=== PATIENT | female | born 1965 | race African-American/Black ===

== ENCOUNTER 2016-11-18 17:19 | Emergency (ER) | payer MEDICAID ==
[~2016-11-18] VITALS: Ht 162.6 cm; Wt 117.5 kg
[~2016-11-18 17:19] MED LIST: AMLODIPINE BESY10 MG ORAL; COLACE100 MG ORAL; FLEET ENEMA133 ML RECTAL; HYDROCHLOROTHIA25 MG ORAL; IBUPROFEN600 MG ORAL; MAGNESIUM CITR296 M1 PO; NKM; NORCO 5-325 TA1 EAC1 ORAL; PREDNISONE20 MG ORAL; TESSALON PERLE100 MG ORAL; ZOFRAN ODT4 MG ORAL
[2016-11-18] MEDS ORDERED: Metoclopramide 10mg/2ml Inj IVP ONE (17:45)
[2016-11-18 18:00] VITALS: BP 135/88
[2016-11-18 18:44] LABS: BASOPHILS % (AUTO) 1.8 % (0.0-2.0); EOSINOPHILS % (AUTO) 2.6 % (0.0-3.0); MEAN CORPUSCULAR HEMOGLOBIN 28.2 PG (27.0-31.0); MEAN CORPUSCULAR HGB CONC 32.4 G/DL (32.0-36.0); MEAN CORPUSCULAR VOLUME 87 FL (80-99); MEAN PLATELET VOLUME 8.2 FL (6.5-10.1); MONOCYTES % (AUTO) 10.3 % (1.0-10.0); NEUTROPHILS % (AUTO) 44.3 % (45.0-75.0); PLATELET COUNT 227 K/UL (150-450); RED BLOOD COUNT 4.89 M/UL (4.20-5.40); RED CELL DISTRIBUTION WIDTH 11.9 % (11.6-14.8)
[2016-11-18 18:48] LABS: APPEARANCE,URINE CLEAR; KETONES,URINE NEGATIVE (NEGATIVE); LEUKOCYTE ESTERASE ,URINE 1+ (NEGATIVE); NITRITE,URINE NEGATIVE (NEGATIVE); PH,URINE 8 (4.5-8.0); PROTEIN,URINE NEGATIVE (NEGATIVE); UROBILINOGEN,URINE 1 MG/DL (0.0-1.0)
[2016-11-18 19:02] LABS: BACTERIA,URINE FEW /HPF; RBC,URINE 0-2 /HPF (0 - 2); SQUAMOUS EPITHELIAL CELL,UR FEW /LPF (NONE/OCC)
[2016-11-18 19:08] LABS: ANION GAP 12 (5-15); CALCIUM 9.3 mg/dL (8.6-10.2); CARBON DIOXIDE 27 mEQ/L (20-30); CHLORIDE 95 mEQ/L (98-107); CREATININE 0.7 mg/dL (0.5-0.9); GLOMERULAR FILTRATION RATE > 60 mL/min (>60); HEMOLYSIS 5; POTASSIUM 4.1 mEQ/L (3.4-4.9); SODIUM 134 mEQ/L (135-145)
--- NOTE | 2016-11-18 19:35 | Emergency Room Report ---
History of Present Illness General Chief Complaint: General Complaint Source: Patient Present Illness HPI 51-year-old female presents to emergency Department complaining of generalized muscle cramping and urinary frequency. pt states she was at the gym when she became nauseated and notes intermittent CASTELLANOS's. pt. states current CASTELLANOS was progressive in nature and is rates as 8/10 in severity with generalized dull/ ache. pt. also reports dry mouth, and increased thirst. Patient reports history of high blood pressure and recently had diuretic added to medication regimen. Patient denies history of diabetes. Patient denies dizziness, vomiting, abdominal pain, constipation, diarrhea, hematuria, dysuria or urinary urgency. Denies CP, Palpitations, LOC, AMS, dizziness, Changes in Vision, Sensation, paresthesias, or a sudden severe headache. Allergies: Coded Allergies: No Known Allergies (Unverified , 12/23/12) Patient History Past Medical History: see triage record Past Surgical History: none Pertinent Family History: none Now: No Immunizations: UTD Reviewed Nursing Documentation: PMH: Agreed, PSxH: Agreed Nursing Documentation-PMH Hx Hypertension: Yes Review of Systems All Other Systems: negative except mentioned in HPI Physical Exam Vital Signs Date Time Temp Pulse Resp B/P Pulse Ox O2 Delivery O2 Flow Rate FiO2 11/18/16 17:27 97.9 77 15 135/88 96 Room Air Sp02 EP Interpretation: reviewed, normal General Appearance: no apparent distress, alert, GCS 15, non-toxic Head: normocephalic, atraumatic Eyes: bilateral eye EOMI, bilateral eye PERRL, bilateral eye normal inspection , bilateral eye other - no photophobia ENT: hearing grossly normal, normal pharynx, no angioedema, normal voice, TMs + canals normal, uvula midline, dry mucus membranes Neck: full range of motion, no meningismus, no bony tend, supple/symm/no masses Respiratory: chest non-tender, lungs clear, normal breath sounds, speaking full sentences Cardiovascular #1: regular rate, rhythm, no edema, normal capillary refill Gastrointestinal: non tender, soft, no guarding Rectal: deferred Genitourinary: normal inspection, no CVA tenderness Musculoskeletal: back normal, gait/station normal, normal range of motion, non- tender Neurologic: alert, oriented x3, responsive, motor strength/tone normal, sensory intact, cerebellar normal, normal gait, speech normal, no pronator, other - negative tracey's Psychiatric: judgement/insight normal, memory normal, mood/affect normal, no suicidal/homicidal ideation Skin: normal color, no rash, warm/dry Lymphatic: no adenopathy Medical Decision Making PA Attestation Dr. Cristobal is my supervising Physician whom patient management has been discussed with. Diagnostic Impression: Primary Impression: Dehydration, mild ER Course 51-year-old female presents to emergency Department complaining of generalized muscle cramping and urinary frequency. pt states she was at the gym when she became nauseated and notes intermittent CASTELLANOS's. pt. states current CASTELLANOS was progressive in nature and is rates as 8/10 in severity with generalized dull/ ache. pt. also reports dry mouth, and increased thirst. Patient reports history of high blood pressure and recently had diuretic added to medication regimen. Patient denies history of diabetes. Patient denies dizziness, vomiting, abdominal pain, constipation, diarrhea, hematuria, dysuria or urinary urgency. Ddx considered but are not limited to dehydration, diuretic SE, electrolyte imbalance, UTI, acute-intracranial process Vital signs: pt. is afebrile, H&PE are most consistent with mild dehydration, will assess electrolyte function and r/o UTI, no focal neurological deficits noted, pt is NAD, non- toxic in appearance. ORDERS: -CBC: unremarkable -BMP: hypochloremia and hyponatremia -mild, normal renal function - UA: no evidence of acute infection ED INTERVENTIONS: -1000 NS iv hydration - 10mg Reglan IV -650mg Tylenol PO upon re-evaluation pt states she feels significantly better and her symptoms have resolved. DISCHARGE: At this time pt. is stable for d/c to home. Will provide printed patient care instructions, and any necessary prescriptions. Care plan and follow up instructions have been discussed with the patient prior to discharge. Labs Test 11/18/16 17:50 11/18/16 18:00 Urine Color Pale yellow Urine Appearance Clear Urine pH 8 (4.5-8.0) Urine Specific [place] 1.010 (1.005-1.035) Urine Protein Negative (NEGATIVE) Urine Glucose (UA) Negative (NEGATIVE) Urine Ketones Negative (NEGATIVE) Urine Occult Blood Negative (NEGATIVE) Urine Nitrite Negative (NEGATIVE) Urine Bilirubin Negative (NEGATIVE) Urine Urobilinogen 1 MG/DL (0.0-1.0) Urine Leukocyte Esterase 1+ (NEGATIVE) Urine RBC 0-2 /HPF (0 - 2) Urine WBC 2-4 /HPF (0 - 2) Urine Squamous Epithelial Cells Few /LPF (NONE/OCC) Urine Bacteria Few /HPF (NONE) White Blood Count 6.0 K/UL (4.8-10.8) Red Blood Count 4.89 M/UL (4.20-5.40) Hemoglobin 13.8 G/DL (12.0-16.0) Hematocrit 42.4 % (37.0-47.0) Mean Corpuscular Volume 87 FL (80-99) Mean Corpuscular Hemoglobin 28.2 PG (27.0-31.0) Mean Corpuscular Hemoglobin Concent 32.4 G/DL (32.0-36.0) Red Cell Distribution Width 11.9 % (11.6-14.8) Platelet Count 227 K/UL (150-450) Mean Platelet Volume 8.2 FL (6.5-10.1) Neutrophils (%) (Auto) 44.3 % (45.0-75.0) Lymphocytes (%) (Auto) 41.0 % (20.0-45.0) Monocytes (%) (Auto) 10.3 % (1.0-10.0) Eosinophils (%) (Auto) 2.6 % (0.0-3.0) Basophils (%) (Auto) 1.8 % (0.0-2.0) Sodium Level 134 mEQ/L (135-145) Potassium Level 4.1 mEQ/L (3.4-4.9) Chloride Level 95 mEQ/L (98-107) Carbon Dioxide Level 27 mEQ/L (20-30) Anion Gap 12 (5-15) Blood Urea Nitrogen 14 mg/dL (7-23) Creatinine 0.7 mg/dL (0.5-0.9) Estimat Glomerular Filtration Rate > 60 mL/min (>60) Glucose Level 105 mg/dL (74-106) Calcium Level 9.3 mg/dL (8.6-10.2) Last Vital Signs Date Time Temp Pulse Resp B/P Pulse Ox O2 Delivery O2 Flow Rate FiO2 11/18/16 18:11 97.9 11/18/16 18:00 15 135/88 96 Room Air 11/18/16 17:27 77 Disposition: HOME, SELF-CARE Condition: Stable Scripts Metoclopramide Hcl* (REGLAN*) 10 Mg Tablet 10 MG ORAL THREE TIMES A DAY for 4 Days, #12 TAB Prov: Sade Mora 11/18/16 Referrals: REGAL JARON ORTEZ,REFERRING (PCP) Patient Instructions: Dehydration, Adult, [id number] Additional Instructions: Take medications as directed. Follow up with PCP in 3-5 days Return sooner to ED if new symptoms occur, or current symptoms become worse. - Please note that this Emergency Department Report was dictated using [employer] Technologiessafekeeping clerk technology software, occasionally this can lead to erroneous entry secondary to interpretation by the dictation equipment. Sade Mora Nov 18, 2016 19:35
[2016-11-18] MEDS ORDERED: REGLAN10 MG ORAL (19:36)
[2016-11-18 19:41] VITALS: BP 129/81
== END 2016-11-18 19:48 | disposition home or self-care (01) ==
LOC: EMR 17:39
DX: E86.0 Dehydration (principal); I10 Essential (primary) hypertension
CPT/HCPCS: 36415; 80048; 81003; 85025; 96360; 96374; 99284; J2765; J7040

== ENCOUNTER 2016-11-22 05:39 | Emergency (ER) | payer MEDICAID ==
[~2016-11-22] VITALS: Ht 162.6 cm; Wt 117.9 kg
[~2016-11-22 05:39] MED LIST changes: +REGLAN10 MG ORAL
[2016-11-22 05:50] VITALS: BP 135/96
--- NOTE | 2016-11-22 06:03 | Emergency Room Report ---
History of Present Illness General Chief Complaint: Dizziness Source: Patient Present Illness HPI Is a 50-year-old female with a history hypertension. She has been here several , for chief complaint of dehydration and dizziness. She said this occurred ever since she started taking Norvasc and hydrochlorothiazide. Denies any fever or chills. Worse when she lays back. Denies any vomiting. Denies any dysuria frequency. Allergies: Coded Allergies: No Known Allergies (Unverified , 12/23/12) Patient History Past Medical History: see triage record, old chart reviewed, HTN Past Surgical History: none Pertinent Family History: none Social History: Denies: smoking Now: No Immunizations: other Reviewed Nursing Documentation: PMH: Agreed, PSxH: Agreed Nursing Documentation-PMH Hx Hypertension: Yes Review of Systems Eye: Denies: blurred vision, eye pain ENT: Denies: ear pain, nose congestion, throat swelling Respiratory: Denies: cough, shortness of breath Cardiovascular: Denies: chest pain, palpitations Gastrointestinal: Denies: abdominal pain, diarrhea, nausea, vomiting Musculoskeletal: Denies: back pain, joint pain Skin: Denies: rash Neurological: Denies: headache, numbness Endocrine: Denies: increased thirst, increased urine Hematologic/Lymphatic: Denies: easy bruising All Other Systems: negative except mentioned in HPI Physical Exam Vital Signs Date Time Temp Pulse Resp B/P Pulse Ox O2 Delivery O2 Flow Rate FiO2 11/22/16 05:43 98.1 68 18 136/97 97 Room Air vitals unremarkable. Sp02 EP Interpretation: reviewed, normal General Appearance: well appearing, no apparent distress, alert Head: normocephalic, atraumatic Eyes: bilateral eye EOMI, bilateral eye PERRL ENT: hearing grossly normal, normal pharynx Neck: full range of motion, supple, no meningismus Respiratory: chest non-tender, lungs clear, normal breath sounds Cardiovascular #1: regular rate, rhythm, no murmur Gastrointestinal: normal bowel sounds, non tender, no mass, no organomegaly, no bruit, non-distended Musculoskeletal: back normal, gait/station normal, normal range of motion Psychiatric: mood/affect normal Skin: warm/dry Medical Decision Making Diagnostic Impression: Primary Impression: Hypertension Qualified Codes: I10 - Essential (primary) hypertension Additional Impression: Dizziness ER Course Patient presents with dizziness. No evidence of dehydration. BUN and creatinine as been normal. No ketones in the urine. I suspect this may be psychogenic. This may be side effect of her Norvasc and hydrochlorothiazide. Ongoing and switch her blood pressure class. Last Vital Signs Date Time Temp Pulse Resp B/P Pulse Ox O2 Delivery O2 Flow Rate FiO2 11/22/16 05:43 98.1 68 18 136/97 97 Room Air Status: improved Disposition: HOME, SELF-CARE Condition: Stable Scripts Valsartan (Diovan) 80 Mg Tablet 1 TAB ORAL DAILY, #30 TAB Prov: IVONNE FITZGERALD M.D. 11/22/16 Patient Instructions: Dizziness Additional Instructions: Stop the Norvasc and water pill. Take the new blood pressure medication. Return if worse. Followup with your Dr. in 7 days. Keep a log of your blood pressure reading. IVONNE FITZGERALD M.D. Nov 22, 2016 06:03
[2016-11-22] MEDS ORDERED: DIOVAN HCT 80MG1 TAB ORAL (06:16)
[2016-11-22 06:25] VITALS: BP 135/96
== END 2016-11-22 06:25 | disposition home or self-care (01) ==
LOC: EMR 06:05
DX: R42 Dizziness and giddiness (principal); I10 Essential (primary) hypertension
CPT/HCPCS: 99283

== ENCOUNTER 2016-12-20 13:12 | Emergency (ER) | payer MEDICAID ==
[~2016-12-20] VITALS: Ht 170.2 cm; Wt 120.2 kg
[~2016-12-20 13:12] MED LIST changes: +DIOVAN HCT 80MG1 TAB ORAL
[2016-12-20] MEDS ORDERED: ZOFRAN ODT4 MG ORAL (13:37)
[2016-12-20] MEDS ORDERED: Norco 10mg/325mg tab ORAL ONE (13:45)
[2016-12-20] MEDS ORDERED: Ketorolac 60mg Inj IM ONE (13:45)
[2016-12-20 14:04] VITALS: BP 122/73
[2016-12-20 14:22] VITALS: BP 122/73
--- NOTE | 2016-12-21 07:22 | Emergency Room Report ---
History of Present Illness General Chief Complaint: General Complaint Source: Patient Present Illness HPI Patient present with complaints of headache Patient claims of general weakness Denies any chest pain denies any shortness of breath Patient feels that when she puts her head forward she feels increased discomfort denies any neck pain or photophobia Denies any back or flank pain Patient denies any blood in the stool Headache is diffuse 02/07 Allergies: Coded Allergies: No Known Allergies (Unverified , 12/23/12) Patient History Past Medical History: see triage record Pertinent Family History: none Now: No Reviewed Nursing Documentation: PMH: Agreed, PSxH: Agreed Nursing Documentation-PMH Hx Cardiac Problems: No Hx Hypertension: Yes Hx Pacemaker: No Hx Asthma: No Hx COPD: No Hx Diabetes: No Hx Cerebrovascular Accident: No Hx Seizures: No Review of Systems All Other Systems: negative except mentioned in HPI Physical Exam Vital Signs Date Time Temp Pulse Resp B/P Pulse Ox O2 Delivery O2 Flow Rate FiO2 12/20/16 13:22 97.9 66 16 140/80 98 Room Air Sp02 EP Interpretation: reviewed, normal General Appearance: well appearing, no apparent distress Head: normocephalic, atraumatic Eyes: bilateral eye EOMI, bilateral eye PERRL ENT: hearing grossly normal, normal pharynx, TMs + canals normal, uvula midline Neck: full range of motion, supple, no meningismus, no bony tend Respiratory: lungs clear, normal breath sounds, no rhonchi, no respiratory distress, no retraction, no accessory muscle use Cardiovascular #1: normal peripheral pulses, regular rate, rhythm, no edema, no gallop, no JVD, no murmur Gastrointestinal: normal bowel sounds, non tender, soft, no mass, no organomegaly, non-distended, no guarding, no hernia, no pulsatile mass, no rebound Genitourinary: no CVA tenderness Musculoskeletal: normal inspection Neurologic: oriented x3, responsive, drill operator automatic III-XII nml as tested, motor strength/ tone normal, sensory intact Psychiatric: mood/affect normal Skin: normal color, no rash, warm/dry, palpation normal Lymphatic: normal inspection, no adenopathy Medical Decision Making Diagnostic Impression: Primary Impression: headache ER Course Multiple differentials considered Including but not limited to the neurological, neurosurgical hemodynamic pathology Also infectious Patient clinical exam is benign Review of chart reveals patient has had 4 different CAT scan of the head in this facility Also abdominal CT Given the lack of any focal neurological findings I did not feel that repeat imaging was required Patient was encouraged highly to consult with neurology and primary physician for further evaluation of her ongoing headaches Is otherwise stable for close patient followup Last Vital Signs Date Time Temp Pulse Resp B/P Pulse Ox O2 Delivery O2 Flow Rate FiO2 12/20/16 14:22 97.9 76 16 122/73 98 Room Air Status: improved Disposition: HOME, SELF-CARE Condition: Improved Scripts Ondansetron Odt* (ZOFRAN ODT*) 4 Mg Tab.rapdis 4 MG ORAL Q6H Y for Nausea & Vomiting, #15 TAB 0 Refills Prov: MILA LARSON D.O. 12/20/16 [facility] Patient Instructions: General Headache Without Cause, [id number] Additional Instructions: Patient is provided with the discharge instructions notified to follow up with primary doctor in the next 2-3 days otherwise return to the er with any worsening symptoms. Please note that this report is being documented using [employer] technology. This can lead to erroneous entry secondary to incorrect interpretation by the dictating instrument. MILA LARSON D.O. Dec 21, 2016 07:22
== END 2016-12-20 14:30 | disposition home or self-care (01) ==
LOC: EMR 13:35
DX: R51 Headache (principal); I10 Essential (primary) hypertension; R53.1 Weakness
CPT/HCPCS: 96372; 99283

== ENCOUNTER 2018-02-27 17:43 | Emergency (ER) | payer SELFPAY ==
[~2018-02-27] VITALS: Ht 160 cm; Wt 76.7 kg
[2018-02-27] MEDS ORDERED: NKM (17:54)
[2018-02-27] MEDS ORDERED: Sodium Chloride 500ML 500 ML IV ONE (18:15)
[2018-02-27 18:25] VITALS: BP 113/68
[2018-02-27 18:39] LABS: APPEARANCE,URINE CLEAR; BILIRUBIN, URINE NEGATIVE (NEGATIVE); COLOR,URINE PALE YELLOW; GLUCOSE, URINE (UA) NEGATIVE (NEGATIVE); KETONES,URINE NEGATIVE (NEGATIVE); LEUKOCYTE ESTERASE ,URINE 1+ (NEGATIVE); NITRITE,URINE NEGATIVE (NEGATIVE); PH,URINE 6 (4.5-8.0); PROTEIN,URINE NEGATIVE (NEGATIVE); UROBILINOGEN,URINE 1 MG/DL (0.0-1.0)
[2018-02-27 18:51] LABS: ANION GAP 6 mmol/L (5-15); BASOPHILS % (AUTO) 1.7 % (0.0-2.0); BLOOD UREA NITROGEN 18 mg/dL (7-18); CALCIUM 9.5 MG/DL (8.5-10.1); CARBON DIOXIDE 28 MMOL/L (21-32); CHLORIDE 99 MMOL/L (98-107); CREATININE 1.1 MG/DL (0.55-1.30); HEMATOCRIT 42.5 % (37.0-47.0); HEMOGLOBIN 14.6 G/DL (12.0-16.0); MEAN CORPUSCULAR VOLUME 85 FL (80-99); MONOCYTES % (AUTO) 5.8 % (1.0-10.0); NEUTROPHILS % (AUTO) 69.5 % (45.0-75.0); PLATELET COUNT 178 K/UL (150-450); POTASSIUM 4.1 MMOL/L (3.5-5.1); RED BLOOD COUNT 5.03 M/UL (4.20-5.40); RED CELL DISTRIBUTION WIDTH 11.2 % (11.6-14.8); SODIUM 133 MMOL/L (136-145); WHITE BLOOD COUNT 9.2 K/UL (4.8-10.8)
[2018-02-27 18:56] LABS: INR 1.1 (0.9-1.1)
[2018-02-27 19:04] LABS: ALANINE AMINOTRANSFERASE 33 U/L (12-78); ALBUMIN 3.8 G/DL (3.4-5.0); ALBUMIN/GLOBULIN RATIO 0.8 (1.0-2.7); ALKALINE PHOSPHATASE 58 U/L (46-116); ASPARTATE AMINO TRANSFERASE 28 U/L (15-37); BILIRUBIN,TOTAL 0.9 MG/DL (0.2-1.0)
[2018-02-27 19:30] VITALS: BP 138/70
[2018-02-27] MEDS ORDERED: Acetaminophen 500mg (ES) tab ORAL ONE (19:45)
--- NOTE | 2018-02-27 20:08 | Diagnostic Imaging Report ---
EXAM: CT Head Without Intravenous Contrast CLINICAL HISTORY: PAIN TECHNIQUE: Axial computed tomography images of the head/brain without intravenous contrast. CTDI is 0.15, 70.38 mGy and DLP is 1305 mGy-cm. One or more of the following dose reduction techniques were used: automated exposure control, adjustment of the mA and/or kV according to patient size, use of iterative reconstruction technique. COMPARISON: CT head dated 07/16/2015 FINDINGS: Brain: No acute infarct, hemorrhage, mass or edema. No significant white matter disease. Ventricles: Unremarkable. No ventriculomegaly. Bones/joints: No acute osseous abnormality. Soft tissues: Unremarkable. Sinuses: Mild mucosal thickening of the paranasal sinuses. Mastoid air cells: Unremarkable as visualized. No mastoid effusion. IMPRESSION: No acute findings.
[2018-02-27] MEDS ORDERED: CEPHALEXIN500 MG ORAL (20:33)
[2018-02-27 20:50] VITALS: BP 140/78
--- NOTE | 2018-02-27 21:50 | Emergency Room Report ---
History of Present Illness General Chief Complaint: Generalized Weakness Source: Patient Present Illness HPI Patient 52-year-old female presented after increased generalized weakness. Patient gradual onset of symptoms of the past 4 days. Patient reports having some dysuria as well as increased had discoloration of her urine. She denies any fever. She reports having some headache as well as nonproductive cough. She denies any severe chest discomfort. Allergies: Coded Allergies: No Known Allergies (Unverified , 12/23/12) Patient History Past Medical History: see triage record Reviewed Nursing Documentation: PMH: Agreed; PSxH: Agreed Nursing Documentation-PMH Past Medical History: No Stated History Hx Cardiac Problems: No Hx Hypertension: Yes Hx Pacemaker: No Hx Asthma: No Hx COPD: No Hx Diabetes: No Hx Cerebrovascular Accident: No Hx Seizures: No Review of Systems All Other Systems: negative except mentioned in HPI Physical Exam Vital Signs Date Time Temp Pulse Resp B/P (MAP) Pulse Ox O2 Delivery O2 Flow Rate FiO2 02/27/18 17:51 100.0 101 16 113/68 94 Room Air 100.0 General Appearance: well appearing, no apparent distress, obese Head: normocephalic, atraumatic ENT: hearing grossly normal, normal voice Neck: full range of motion, supple Respiratory: no respiratory distress, speaking full sentences Cardiovascular #1: normal inspection, normal peripheral pulses, regular rate, rhythm, no edema Gastrointestinal: normal inspection, soft Musculoskeletal: normal inspection, no calf tenderness Neurologic: normal inspection, alert, oriented x3, responsive, data lead III-XII nml as tested, normal gait Psychiatric: mood/affect normal Skin: no rash Medical Decision Making Diagnostic Impression: Primary Impression: Headache Additional Impressions: Urinary tract infection Dehydration ER Course Patient presented for generalized weakness. Differential diagnosis included was not limited to anemia, urinary tract infection, electrolyte abnormality, hypothyroidism, myocardial infarction, myasthenia gravis, dehydration, among others. Because of complexity of patient's case laboratory testing and imaging studies were ordered. The patient was given IV fluids as well as acetaminophen for headache. The CT the head read by radiology showed no evidence of acute intracranial hemorrhage or fracture or CVA. The urinalysis showed some evidence of hematuria. Patient was given prescription for oral antibiotics. She is advised to follow-up with primary care physician for reexamination treatment.The patient is advised to follow up with primary care doctor in 1-2 days. Patient is advised to return if any worsening condition or if any changes in status that are concerning. This report is dictated with [employer] technical sales support specialist software which may occasionally lead to discrepancies related to use of this software. Labs Test 02/27/18 18:20 02/27/18 18:28 White Blood Count 9.2 K/UL (4.8-10.8) Red Blood Count 5.03 M/UL (4.20-5.40) Hemoglobin 14.6 G/DL (12.0-16.0) Hematocrit 42.5 % (37.0-47.0) Mean Corpuscular Volume 85 FL (80-99) Mean Corpuscular Hemoglobin 29.0 PG (27.0-31.0) Mean Corpuscular Hemoglobin Concent 34.3 G/DL (32.0-36.0) Red Cell Distribution Width 11.2 % (11.6-14.8) Platelet Count 178 K/UL (150-450) Mean Platelet Volume 8.3 FL (6.5-10.1) Neutrophils (%) (Auto) 69.5 % (45.0-75.0) Lymphocytes (%) (Auto) 20.0 % (20.0-45.0) Monocytes (%) (Auto) 5.8 % (1.0-10.0) Eosinophils (%) (Auto) 3.0 % (0.0-3.0) Basophils (%) (Auto) 1.7 % (0.0-2.0) Prothrombin Time 11.0 SEC (9.30-11.50) Prothromb Time International Ratio 1.1 (0.9-1.1) Activated Partial Thromboplast Time 28 SEC (23-33) Sodium Level 133 MMOL/L (136-145) Potassium Level 4.1 MMOL/L (3.5-5.1) Chloride Level 99 MMOL/L (98-107) Carbon Dioxide Level 28 MMOL/L (21-32) Anion Gap 6 mmol/L (5-15) Blood Urea Nitrogen 18 mg/dL (7-18) Creatinine 1.1 MG/DL (0.55-1.30) Estimat Glomerular Filtration Rate > 60 mL/min (>60) Glucose Level 119 MG/DL (74-106) Calcium Level 9.5 MG/DL (8.5-10.1) Total Bilirubin 0.9 MG/DL (0.2-1.0) Aspartate Amino Transf (AST/SGOT) 28 U/L (15-37) Alanine Aminotransferase (ALT/SGPT) 33 U/L (12-78) Alkaline Phosphatase 58 U/L (46-116) Troponin I 0.000 ng/mL (0.000-0.056) Total Protein 8.8 G/DL (6.4-8.2) Albumin 3.8 G/DL (3.4-5.0) Globulin 5.0 g/dL Albumin/Globulin Ratio 0.8 (1.0-2.7) Thyroid Stimulating Hormone (TSH) 0.760 uiU/mL (0.358-3.740) Urine Color Pale yellow Urine Appearance Clear Urine pH 6 (4.5-8.0) Urine Specific [place] 1.010 (1.005-1.035) Urine Protein Negative (NEGATIVE) Urine Glucose (UA) Negative (NEGATIVE) Urine Ketones Negative (NEGATIVE) Urine Occult Blood 3+ (NEGATIVE) Urine Nitrite Negative (NEGATIVE) Urine Bilirubin Negative (NEGATIVE) Urine Urobilinogen 1 MG/DL (0.0-1.0) Urine Leukocyte Esterase 1+ (NEGATIVE) Urine RBC 2-4 /HPF (0 - 2) Urine WBC 0-2 /HPF (0 - 2) Urine Squamous Epithelial Cells Few /LPF (NONE/OCC) Urine Bacteria Few /HPF (NONE) Last Vital Signs Date Time Temp Pulse Resp B/P (MAP) Pulse Ox O2 Delivery O2 Flow Rate FiO2 02/27/18 20:50 99.2 78 16 140/78 95 Room Air 99.2 Status: improved Disposition: HOME, SELF-CARE Condition: Improved Scripts Cephalexin* (KEFLEX*) 500 Mg Capsule 500 MG ORAL EVERY 6 HOURS, #20 CAP Prov: Coleman Cristobal MD 02/27/18 Patient Instructions: Coleman Berry MD Feb 27, 2018 21:50
== END 2018-02-27 20:50 | disposition home or self-care (01) ==
LOC: EMR 18:11
DX: R51 Headache (principal); R05 Cough; I10 Essential (primary) hypertension; N39.0 Urinary tract infection, site not specified; E86.0 Dehydration
CPT/HCPCS: 36415; 70450; 80053; 81001; 84443; 84484; 85025; 85610; 85730; 96360; 99284; J7040

== ENCOUNTER 2019-02-25 08:32 | Emergency (ER) | payer MEDICAID ==
[~2019-02-25] VITALS: Ht 162.6 cm; Wt 117.9 kg
[~2019-02-25 08:32] MED LIST changes: +CEPHALEXIN500 MG ORAL
[2019-02-25] MEDS ORDERED: Ketorolac 30mg Inj IV ONE (09:00)
--- NOTE | 2019-02-25 09:00 | NUR ---
ED Nurse Note:pt. came with c/o headache and HTN, A/Ox4 ambulatory, VSS, given blood and IV fluids, continue monitoring
[2019-02-25 09:20] VITALS: BP 155/88
[2019-02-25] MEDS ORDERED: IBUPROFEN600 MG ORAL (10:41)
[2019-02-25] MEDS ORDERED: NORCO 5-325 TA1 EACH ORAL (10:41)
[2019-02-25 10:52] VITALS: BP 155/88
--- NOTE | 2019-02-25 11:02 | NUR ---
ER DISCHARGE NOTE: Patient is cleared to be discharged per ERMD, pt is aox4, on room air, with stable vital signs. pt was given dc and prescription instructions, pt was able to verbalize understanding, pt id band and iv site removed without complications. pt is able to ambulate with steady gait. pt took all belongings.
--- NOTE | 2019-02-25 12:55 | Emergency Room Report ---
History of Present Illness General Chief Complaint: Headache Source: Patient, Medical Record Present Illness HPI Patient presents emergency department today complaining of a headache. Patient states that she has occasional headaches she is had extensive work-up in the past including CT of the brain. She states that her headaches fairly typical for her usual exacerbation. She states that it came on because she was coughing really hard a few days ago. She denies any nausea vomiting diarrhea chills. She states that once this bad usually some pain medications to help. No other complaints were noted. Symptoms noted to be moderate to severe. No other modifying factors. No other associated signs and symptoms. No other complaints were noted. Allergies: Coded Allergies: No Known Allergies (Unverified , 12/23/12) Patient History Past Medical History: HTN Past Surgical History: none Pertinent Family History: none Social History: Denies: smoking, alcohol use, drug use Last Menstrual Period: hystrectomy Reviewed Nursing Documentation: PMH: Agreed; PSxH: Agreed Nursing Documentation-PMH Past Medical History: No History, Except For Hx Cardiac Problems: No - Hystrectomy Hx Hypertension: Yes Hx Pacemaker: No Hx Asthma: No Hx COPD: No Hx Diabetes: No Hx Cerebrovascular Accident: No Hx Seizures: No Review of Systems All Other Systems: negative except mentioned in HPI Physical Exam Vital Signs Date Time Temp Pulse Resp B/P (MAP) Pulse Ox O2 Delivery O2 Flow Rate FiO2 02/25/19 08:40 98.1 72 16 155/88 (110) 94 Room Air Sp02 EP Interpretation: reviewed, normal General Appearance: normal inspection, well appearing, no apparent distress, alert Head: atraumatic Eyes: bilateral eye normal inspection ENT: normal ENT inspection, hearing grossly normal, normal voice Neck: normal inspection, full range of motion, supple, no bony tend Respiratory: normal inspection, lungs clear, normal breath sounds, no respiratory distress, no retraction, no wheezing Cardiovascular #1: regular rate, rhythm, no edema Gastrointestinal: normal inspection, normal bowel sounds, non tender, soft, no guarding, no hernia Genitourinary: no CVA tenderness Musculoskeletal: normal inspection, back normal, normal range of motion Neurologic: normal inspection, alert, responsive, speech normal Psychiatric: normal inspection, judgement/insight normal, mood/affect normal Skin: normal inspection, normal color, no rash Medical Decision Making Diagnostic Impression: Primary Impression: Headache ER Course Patient presents to the emergency department today complaining of headache. Differential diagnoses include acute migraine headache, acute tension headache, stress headache, meningitis, acute intracranial hemorrhage, acute CVA, just to name a few. Patient is exam is fairly benign. Given patient has had extensive work-up in the past I feel that this headache is not an acute emergency likely more chronic for the patient and with recurrent exacerbations I felt the patient could be treated with pain medication she was given some pain meds and fluids and felt much better. Given patient feels much better for the patient be discharged home. Patient is advised to follow up with primary doctor in 2-3 days and return the emergency room for any worsening symptoms and as needed. My advice Last Vital Signs Date Time Temp Pulse Resp B/P (MAP) Pulse Ox O2 Delivery O2 Flow Rate FiO2 02/25/19 10:52 98.1 78 16 155/88 96 Room Air Status: improved Disposition: HOME, SELF-CARE Condition: Stable Scripts Ibuprofen* (MOTRIN*) 600 Mg Tablet 600 MG ORAL Q8H PRN for For Pain, #30 TAB 0 Refills Prov: Blake Cesar MD 02/25/19 Hydrocodone Bit/Acetaminophen 5-325* (NORCO 5-325*) 1 Each Tablet 1 TAB ORAL Q6H PRN for For Pain, #20 TAB 0 Refills Prov: Blake Cesar MD 02/25/19 Referrals: NON PHYSICIAN (PCP) Patient Instructions: Tension Headache Blake Cesar MD Feb 25, 2019 12:55
== END 2019-02-25 11:02 | disposition home or self-care (01) ==
LOC: EMR 09:06
DX: R51 Headache (principal); I10 Essential (primary) hypertension; Z90.710 Acquired absence of both cervix and uterus
CPT/HCPCS: 96361; 96374; 96375; 99284; J1885; J2405

== ENCOUNTER 2019-03-22 01:58 | Emergency (ER) | payer MEDICAID ==
[~2019-03-22] VITALS: Ht 162.6 cm; Wt 115.7 kg
[~2019-03-22 01:58] MED LIST changes: +NORCO 5-325 TA1 EACH ORAL
--- NOTE | 2019-03-22 02:27 | Emergency Room Report ---
History of Present Illness General Chief Complaint: Chest Pain Source: Patient Present Illness HPI This is a 53-year-old female with history of hypertension. She woke up with chief complaint of neck numbness and left arm numbness and tightness. She also has numbness to her left side of her face including the forehead. Little bit better now. No nausea no vomiting. No chest pain. No diaphoresis. No exertional component. Allergies: Coded Allergies: No Known Allergies (Unverified , 12/23/12) Patient History Past Medical History: see triage record, old chart reviewed, HTN Past Surgical History: none Pertinent Family History: none Social History: Denies: smoking Now: No Immunizations: other Reviewed Nursing Documentation: PMH: Agreed; PSxH: Agreed Nursing Documentation-PMH Hx Cardiac Problems: No - Hystrectomy Hx Hypertension: Yes Hx Pacemaker: No Hx Asthma: No Hx COPD: No Hx Diabetes: No Hx Cerebrovascular Accident: No Hx Seizures: No Review of Systems Eye: Denies: eye pain, blurred vision ENT: Denies: ear pain, nose congestion, throat swelling Respiratory: Denies: cough, shortness of breath Cardiovascular: Denies: chest pain, palpitations Gastrointestinal: Denies: abdominal pain, diarrhea, nausea, vomiting Musculoskeletal: Denies: back pain, joint pain Skin: Denies: rash Neurological: Reports: paresthesia; Denies: headache, numbness Endocrine: Denies: increased thirst, increased urine Hematologic/Lymphatic: Denies: easy bruising All Other Systems: negative except mentioned in HPI Physical Exam Vital Signs Date Time Temp Pulse Resp B/P (MAP) Pulse Ox O2 Delivery O2 Flow Rate FiO2 03/22/19 02:13 98.4 71 16 138/84 (102) 94 Room Air Vitals normal Sp02 EP Interpretation: reviewed, normal General Appearance: well appearing, no apparent distress, alert Head: normocephalic, atraumatic Eyes: bilateral eye PERRL, bilateral eye EOMI ENT: hearing grossly normal, normal pharynx Neck: full range of motion, supple, no meningismus Respiratory: chest non-tender, lungs clear, normal breath sounds Cardiovascular #1: regular rate, rhythm, no murmur Gastrointestinal: normal bowel sounds, non tender, no mass, no organomegaly, no bruit, non-distended Musculoskeletal: back normal, gait/station normal, normal range of motion Psychiatric: mood/affect normal Medical Decision Making Diagnostic Impression: Primary Impression: Paresthesia Additional Impression: Chest pain Qualified Codes: R07.9 - Chest pain, unspecified ER Course With paresthesia of her face and arm. No evidence of ACS, PE, dissection. No evidence of TIA or CVA. Her numbness to her face involving the forehead also. No evidence of any Salvador's palsy. EKG Diagnostic Results Rate: normal Rhythm: NSR ST Segments: no acute changes CT/MRI/US Diagnostic Results CT/MRI/US Diagnostic Results : Imaging Test Ordered: CT head Impression Negative per radiologist Last Vital Signs Date Time Temp Pulse Resp B/P (MAP) Pulse Ox O2 Delivery O2 Flow Rate FiO2 03/22/19 02:13 98.4 71 16 138/84 (102) 94 Room Air Status: improved Disposition: HOME, SELF-CARE Condition: Stable Referrals: [facility],REFERRING (PCP) Additional Instructions: Follow-up with your doctor in 7 days. Return if symptoms worsen. Jose Brady MD Mar 22, 2019 02:27
[2019-03-22] MEDS ORDERED: Ketorolac 30mg Inj IV ONE (02:30)
--- NOTE | 2019-03-22 02:30 | NUR ---
ED Nurse Note: PT AMBULATED TO ED C/O Left anterior chest tightness - awoke with pain ~ and hour ago; LUE numbness for two days. AO4. NAD. VSS
[2019-03-22 02:38] LABS: BASOPHILS % (AUTO) 1.6 % (0.0-2.0); EOSINOPHILS % (AUTO) 2.8 % (0.0-3.0); HEMATOCRIT 43.5 % (37.0-47.0); HEMOGLOBIN 14.4 G/DL (12.0-16.0); LYMPHOCYTES % (AUTO) 41.9 % (20.0-45.0); MEAN CORPUSCULAR VOLUME 87 FL (80-99); MONOCYTES % (AUTO) 6.8 % (1.0-10.0); NEUTROPHILS % (AUTO) 46.9 % (45.0-75.0); PLATELET COUNT 264 K/UL (150-450); WHITE BLOOD COUNT 6.8 K/UL (4.8-10.8)
[2019-03-22 02:39] VITALS: BP 138/84
--- NOTE | 2019-03-22 02:40 | NUR ---
ED Nurse Note: PT DOWN TO IMAGING.
--- NOTE | 2019-03-22 02:53 | NUR ---
ED Nurse Note: PT BACK FROM CT.
[2019-03-22 02:55] LABS: ANION GAP 4 mmol/L (5-15); BLOOD UREA NITROGEN 13 mg/dL (7-18); CALCIUM 9.3 MG/DL (8.5-10.1); CARBON DIOXIDE 30 MMOL/L (21-32); CHLORIDE 100 MMOL/L (98-107); CREATININE 0.8 MG/DL (0.55-1.30); POTASSIUM 3.3 MMOL/L (3.5-5.1); SODIUM 134 MMOL/L (136-145)
--- NOTE | 2019-03-22 03:09 | Diagnostic Imaging Report ---
Indications: Severe headache, dizziness for 2 days Technique: Spiral acquisitions obtained through the brain. Angled axial and coronal 5 x 5 mm slices were reconstructed. Total dose length product 1361.6 mGycm. CTDI vol(s) 70.38 mGy. Dose reduction achieved using automated exposure control Comparison: 02/27/2018 Findings: There is apparent asymmetric decreased attenuation of the right cerebellar deep white matter, suspect due to beam hardening artifact. No evidence of acute hemorrhage or edema elsewhere. Normal jasmine-white differentiation. Normal-sized ventricles and extra-axial CSF spaces. Visualized orbits and sinuses are unremarkable. The calvarium is intact. Impression: Negative. No evidence of acute intracranial bleed or mass effect This agrees with the preliminary interpretation provided overnight by [facility]. The CT scanner at [facility] is accredited by the [employer] and the scans are performed using protocols designed to limit radiation exposure to as low as reasonably achievable to attain images of sufficient resolution adequate for diagnostic evaluation.
[2019-03-22 03:45] VITALS: BP 138/84
--- NOTE | 2019-03-22 13:56 | Cardiology Report ---
APPROVED REPORT EKG Measurement Heart [id number] Normal sinus rhythm with sinus arrhythmia Moderate voltage criteria for LVH, may be normal variant Nonspecific ST abnormality Abnormal ECG
== END 2019-03-22 03:45 | disposition home or self-care (01) ==
LOC: EMR 02:21
DX: R20.2 Paresthesia of skin (principal); R07.9 Chest pain, unspecified; Z90.710 Acquired absence of both cervix and uterus; I10 Essential (primary) hypertension
CPT/HCPCS: 36415; 70450; 80048; 84484; 85025; 93005; 96374; 99284; J1885

== ENCOUNTER 2019-07-24 07:41 | Emergency (ER) | payer MEDICAID ==
[~2019-07-24] VITALS: Ht 162.6 cm; Wt 117.9 kg
[2019-07-24] MEDS ORDERED: OMEPRAZOLE20 M3 ORAL (07:56)
[2019-07-24] MEDS ORDERED: MULTIVITAMINS1 EA14 PO (07:56)
[2019-07-24] MEDS ORDERED: Ketorolac 30mg Inj IV ONE (08:00)
[2019-07-24 08:37] LABS: APPEARANCE,URINE CLEAR; BILIRUBIN, URINE NEGATIVE (NEGATIVE); COLOR,URINE PALE YELLOW; GLUCOSE, URINE (UA) NEGATIVE (NEGATIVE); KETONES,URINE NEGATIVE (NEGATIVE); LEUKOCYTE ESTERASE ,URINE 2+ (NEGATIVE); NITRITE,URINE NEGATIVE (NEGATIVE); PH,URINE 6.5 (4.5-8.0); PROTEIN,URINE 1+ (NEGATIVE); UROBILINOGEN,URINE NORMAL MG/DL (0.0-1.0)
[2019-07-24 08:42] LABS: BASOPHILS % (AUTO) 1.3 % (0.0-2.0); HEMATOCRIT 43.1 % (37.0-47.0); HEMOGLOBIN 14.8 G/DL (12.0-16.0); LYMPHOCYTES % (AUTO) 33.5 % (20.0-45.0); MEAN CORPUSCULAR VOLUME 86 FL (80-99); MONOCYTES % (AUTO) 6.6 % (1.0-10.0); NEUTROPHILS % (AUTO) 56.6 % (45.0-75.0); PLATELET COUNT 250 K/UL (150-450); RED BLOOD COUNT 5.02 M/UL (4.20-5.40); RED CELL DISTRIBUTION WIDTH 11.2 % (11.6-14.8); WHITE BLOOD COUNT 5.9 K/UL (4.8-10.8)
[2019-07-24 08:49] VITALS: BP 115/64
[2019-07-24 08:57] LABS: ANION GAP 8 mmol/L (5-15); BLOOD UREA NITROGEN 12 mg/dL (7-18); CALCIUM 8.8 MG/DL (8.5-10.1); CARBON DIOXIDE 29 MMOL/L (21-32); CHLORIDE 105 MMOL/L (98-107); CREATININE 0.8 MG/DL (0.55-1.30); POTASSIUM 3.7 MMOL/L (3.5-5.1); SODIUM 142 MMOL/L (136-145)
[2019-07-24 09:02] LABS: ALANINE AMINOTRANSFERASE 29 U/L (12-78); ALBUMIN 3.6 G/DL (3.4-5.0); ALBUMIN/GLOBULIN RATIO 0.8 (1.0-2.7); ALKALINE PHOSPHATASE 55 U/L (46-116); ASPARTATE AMINO TRANSFERASE 15 U/L (15-37); BILIRUBIN,TOTAL 0.7 MG/DL (0.2-1.0); CREATINE KINASE 269 U/L (26-308)
--- NOTE | 2019-07-24 09:57 | Emergency Room Report ---
History of Present Illness General Chief Complaint: General Complaint Source: Patient Present Illness HPI This patient states that she feels "dehydrated." Patient states she has had dry lips and has had cramps at nighttime in her muscles. She states that she is on hydrochlorothiazide and feels that this is the reason. She states she also does not drink enough water and it is been warm out. She denies fever chills. She denies nausea or vomiting. She denies chest pain or shortness of breath. She denies abdominal pain. She denies dysuria or hematuria. She denies recent illness. She states she did have a headache earlier but is feeling much better. She states she does get chronic headaches. She has no other complaints. Allergies: Coded Allergies: No Known Allergies (Unverified , 12/23/12) Patient History Past Medical History: see triage record, HTN Past Surgical History: hysterectomy Social History: Denies: smoking, alcohol use, drug use Last Menstrual Period: HYSTERECTOMY Reviewed Nursing Documentation: PMH: Agreed; PSxH: Agreed Nursing Documentation-PMH Past Medical History: No History, Except For Hx Cardiac Problems: No - Hystrectomy Hx Hypertension: Yes Hx Pacemaker: No Hx Asthma: No Hx COPD: No Hx Diabetes: No Hx Cerebrovascular Accident: No Hx Seizures: No Review of Systems All Other Systems: negative except mentioned in HPI Physical Exam Vital Signs Date Time Temp Pulse Resp B/P (MAP) Pulse Ox O2 Delivery O2 Flow Rate FiO2 07/24/19 07:47 98.2 73 16 142/83 (102) 95 Room Air Sp02 EP Interpretation: reviewed, normal General Appearance: no apparent distress, alert, GCS 15, non-toxic Head: normocephalic, atraumatic Eyes: bilateral eye normal inspection, bilateral eye PERRL ENT: hearing grossly normal, normal pharynx, no angioedema, normal voice Neck: full range of motion, supple/symm/no masses Respiratory: chest non-tender, lungs clear, normal breath sounds, no respiratory distress, no retraction, no accessory muscle use, speaking full sentences Cardiovascular #1: regular rate, rhythm, no edema Gastrointestinal: normal bowel sounds, non tender, soft, non-distended, no guarding, no rebound Rectal: deferred Musculoskeletal: back normal, normal range of motion, calf tenderness, non- tender Neurologic: alert, motor strength/tone normal, oriented x3, sensory intact, responsive, speech normal Psychiatric: judgement/insight normal, memory normal, mood/affect normal, no suicidal/homicidal ideation Skin: no rash, normal color Medical Decision Making Diagnostic Impression: Primary Impression: Dehydration Additional Impression: Myalgia ER Course This patient is concerned she is dehydrated. Symptoms are nonspecific. There are no red flags on physical exam that would make me concerned for serious illness. This includes no evidence of meningitis, intra-abdominal process that would make me concerned for appendicitis or diverticulitis or other surgical or emergency etiology. Overall, this patient's presentation is benign and the patient is nontoxic. Laboratory workup is negative. There is no evidence of an emergency medical condition. The patient is given close return precautions and followup instructions. Laboratory Tests Test 07/24/19 08:20 White Blood Count 5.9 K/UL (4.8-10.8) Red Blood Count 5.02 M/UL (4.20-5.40) Hemoglobin 14.8 G/DL (12.0-16.0) Hematocrit 43.1 % (37.0-47.0) Mean Corpuscular Volume 86 FL (80-99) Mean Corpuscular Hemoglobin 29.5 PG (27.0-31.0) Mean Corpuscular Hemoglobin Concent 34.4 G/DL (32.0-36.0) Red Cell Distribution Width 11.2 % (11.6-14.8) L Platelet Count 250 K/UL (150-450) Mean Platelet Volume 7.0 FL (6.5-10.1) Neutrophils (%) (Auto) 56.6 % (45.0-75.0) Lymphocytes (%) (Auto) 33.5 % (20.0-45.0) Monocytes (%) (Auto) 6.6 % (1.0-10.0) Eosinophils (%) (Auto) 2.0 % (0.0-3.0) Basophils (%) (Auto) 1.3 % (0.0-2.0) Urine Color Pale yellow Urine Appearance Clear Urine pH 6.5 (4.5-8.0) Urine Specific Yale 1.010 (1.005-1.035) Urine Protein 1+ (NEGATIVE) H Urine Glucose (UA) Negative (NEGATIVE) Urine Ketones Negative (NEGATIVE) Urine Blood 1+ (NEGATIVE) H Urine Nitrite Negative (NEGATIVE) Urine Bilirubin Negative (NEGATIVE) Urine Urobilinogen Normal MG/DL (0.0-1.0) Urine Leukocyte Esterase 2+ (NEGATIVE) H Urine RBC 0-2 /HPF (0 - 2) Urine WBC 2-4 /HPF (0 - 2) Urine Squamous Epithelial Cells Few /LPF (NONE/OCC) Urine Bacteria Occasional /HPF (NONE) Sodium Level 142 MMOL/L (136-145) Potassium Level 3.7 MMOL/L (3.5-5.1) Chloride Level 105 MMOL/L (98-107) Carbon Dioxide Level 29 MMOL/L (21-32) Anion Gap 8 mmol/L (5-15) Blood Urea Nitrogen 12 mg/dL (7-18) Creatinine 0.8 MG/DL (0.55-1.30) Estimate Glomerular Filtration Rate > 60 mL/min (>60) Glucose Level 117 MG/DL (74-106) H Calcium Level 8.8 MG/DL (8.5-10.1) Total Bilirubin 0.7 MG/DL (0.2-1.0) Aspartate Amino Transferase (AST) 15 U/L (15-37) Alanine Aminotransferase (ALT) 29 U/L (12-78) Alkaline Phosphatase 55 U/L (46-116) Total Creatine Kinase 269 U/L (26-308) Total Protein 8.2 G/DL (6.4-8.2) Albumin 3.6 G/DL (3.4-5.0) Globulin 4.6 g/dL Albumin/Globulin Ratio 0.8 (1.0-2.7) L Urine Opiates Screen Negative (NEGATIVE) Urine Barbiturates Screen Negative (NEGATIVE) Phencyclidine (PCP) Screen Negative (NEGATIVE) Urine Amphetamines Screen Negative (NEGATIVE) Urine Benzodiazepines Screen Negative (NEGATIVE) Urine Cocaine Screen Negative (NEGATIVE) Urine Marijuana (THC) Screen Negative (NEGATIVE) Last Vital Signs Date Time Temp Pulse Resp B/P (MAP) Pulse Ox O2 Delivery O2 Flow Rate FiO2 07/24/19 08:49 73 16 Room Air 07/24/19 08:49 98.2 115/64 100 Status: improved Disposition: HOME, SELF-CARE Condition: Improved Referrals: [facility],REFERRING (PCP) Lizet Urena DO Jul 24, 2019 09:57
[2019-07-24 10:27] VITALS: BP 132/71
== END 2019-07-24 10:11 | disposition home or self-care (01) ==
LOC: EMR 08:00
DX: E86.0 Dehydration (principal); M79.10 Myalgia, unspecified site; I10 Essential (primary) hypertension; Z90.710 Acquired absence of both cervix and uterus
CPT/HCPCS: 36415; 80053; 80307; 81003; 82550; 85025; 96361; 96374; J1885; J7030; Z7502; 99284

== ENCOUNTER 2019-10-01 21:46 | Emergency (ER) | payer MEDICAID ==
[~2019-10-01] VITALS: Ht 162.6 cm; Wt 117.9 kg
[~2019-10-01 21:46] MED LIST changes: +MULTIVITAMINS1 EA14 PO; +OMEPRAZOLE20 M3 ORAL
[2019-10-01] MEDS ORDERED: LISINOPRIL20 MG ORAL (21:59)
--- NOTE | 2019-10-01 22:00 | NUR ---
ED Nurse Note: Pt walked in c/o chest tightness, congestion since a few days. Pt stated she was in ER for numbness, tingling, headahce, tightness in muscles and was put on lisnopril 20mg and amlopdipine 5mg. Pt stated she is taking meds but has same symptoms. ao4. nad. vss.
[2019-10-01] MEDS ORDERED: DiphenhydrAMINE 50mg/ml Inj IVP ONE (22:15)
--- NOTE | 2019-10-01 22:15 | NUR ---
ED Nurse Note: iv access established. medicated patient; tolerated well. will continue to monitor.
--- NOTE | 2019-10-01 22:44 | Emergency Room Report ---
History of Present Illness General Chief Complaint: Hypertension Source: Patient Present Illness HPI 54-year-old female presents with gradual onset of headache frontal in nature, not sudden, not aggravated in the recumbent position no fevers no chills no neck stiffness, aggravated with some light, no alleviating factors severity is moderate, constant, no family history of sudden brain bleeds, patient denies any chest pain shortness of breath. Patient states she may be sick and has been feeling under the weather for the past couple of days patient presents for evaluation Allergies: Coded Allergies: No Known Allergies (Unverified , 12/23/12) Patient History Past Medical History: see triage record Reviewed Nursing Documentation: PMH: Agreed; PSxH: Agreed Nursing Documentation-PMH Hx Cardiac Problems: No - Hystrectomy Hx Hypertension: Yes Hx Pacemaker: No Hx Asthma: No Hx COPD: No Hx Diabetes: No Hx Cerebrovascular Accident: No Hx Seizures: No Review of Systems All Other Systems: negative except mentioned in HPI Physical Exam Vital Signs Date Time Temp Pulse Resp B/P (MAP) Pulse Ox O2 Delivery O2 Flow Rate FiO2 10/01/19 21:52 98.2 80 16 136/83 (100) 94 Room Air Sp02 EP Interpretation: reviewed, normal General Appearance: well appearing, no apparent distress, alert Head: normocephalic, atraumatic Eyes: bilateral eye PERRL, bilateral eye EOMI ENT: uvula midline, moist mucus membranes Neck: supple, thyroid normal, supple/symm/no masses Respiratory: lungs clear, no respiratory distress, no retraction, no accessory muscle use Cardiovascular #1: normal peripheral pulses, regular rate, rhythm, no edema, no gallop, no murmur Gastrointestinal: non tender, soft, no guarding, no rebound Musculoskeletal: normal inspection Neurologic: alert, motor strength/tone normal, 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 There are no red flags of CASTELLANOS, not sudden in onset, not maximal in onset, no acute neurological findings, no fever with head stiffness. History of headaches yes Low suspicion for subarachnoid hemorrhage, encephalitis, meningitis. Patient improved with headache cocktail Chest X-Ray Diagnostic Results Chest X-Ray Diagnostic Results : Chest X-Ray Ordered: Yes # of Views/Limited/Complete: 1 View Indication: Other - Cough EP Interpretation: Yes Interpretation: no consolidation, no effusion, no pneumothorax, no acute cardiopulmonary disease Impression: No acute disease Electronically Signed by: Julius Lemons MD Last Vital Signs Date Time Temp Pulse Resp B/P (MAP) Pulse Ox O2 Delivery O2 Flow Rate FiO2 10/01/19 21:52 98.2 80 16 136/83 (100) 94 Room Air Disposition: HOME, SELF-CARE Condition: Stable Scripts Riboflavin (RIBOFLAVIN) 100 Mg Tablet 400 MG PO DAILY, #180 TAB Prov: Julius Lemons MD 10/02/19 Referrals: [facility] Patient Instructions: General Headache Without Cause, [id number] Additional Instructions: The patient was provided with discharge instructions, notified to follow-up with a primary care doctor and or specialist in the next 24-48 hours, and to return to the ED if they have worsening of their symptoms. Please note that this report is being documented using [email or web address] technology. This can lead to erroneous entry secondary to incorrect interpretation by the dictating instrument. Please follow-up with neurology Julius Lemons MD Oct 01, 2019 22:44
[2019-10-01 22:46] VITALS: BP 136/83
--- NOTE | 2019-10-01 23:09 | Diagnostic Imaging Report ---
EXAM: XR Chest, 1 View CLINICAL HISTORY: ABD PAIN TECHNIQUE: Frontal view of the chest. COMPARISON: 03/23/2015 FINDINGS: Lungs: No consolidation or mass. Pleural space: No acute findings Heart: No cardiomegaly. Bones/joints: No acute findings. IMPRESSION: No acute cardiopulmonary process.
[2019-10-02] MEDS ORDERED: RIBOFLAVIN100 MG PO (00:26)
[2019-10-02 00:30] VITALS: BP 129/76
== END 2019-10-02 00:30 | disposition home or self-care (01) ==
LOC: EMR 23:54
DX: R51 Headache (principal); I10 Essential (primary) hypertension; Z90.710 Acquired absence of both cervix and uterus
CPT/HCPCS: 71045; 96361; 96374; 96375; J0780; J1200; J7030; J8540; Z7502; 99284

== ENCOUNTER 2019-10-18 17:32 | Emergency (ER) | payer MEDICAID ==
[~2019-10-18] VITALS: Ht 162.6 cm; Wt 108.9 kg
[~2019-10-18 17:32] MED LIST changes: +LISINOPRIL20 MG ORAL; +RIBOFLAVIN100 MG PO
--- NOTE | 2019-10-18 17:35 | NUR ---
PT CALLED TO BE TRIAGED NOT IN WAITING ROOM
--- NOTE | 2019-10-18 17:49 | NUR ---
ED Nurse Note: Pt walked in from home c/o left sided facial tingling that radiates to left arm. Pt also c/o pain in the left arm and generalized body aches. Respirations even and unlabored on room air. Vitals stable as documented.
[2019-10-18 18:00] VITALS: BP 134/79
[2019-10-18 18:48] LABS: BASOPHILS % (AUTO) 2.4 % (0.0-2.0); EOSINOPHILS % (AUTO) 2.2 % (0.0-3.0); HEMATOCRIT 41.2 % (37.0-47.0); HEMOGLOBIN 13.6 G/DL (12.0-16.0); LYMPHOCYTES % (AUTO) 34.2 % (20.0-45.0); MEAN CORPUSCULAR VOLUME 86 FL (80-99); MONOCYTES % (AUTO) 5.8 % (1.0-10.0); NEUTROPHILS % (AUTO) 55.5 % (45.0-75.0); PLATELET COUNT 267 K/UL (150-450); RED BLOOD COUNT 4.77 M/UL (4.20-5.40); RED CELL DISTRIBUTION WIDTH 12.6 % (11.6-14.8); WHITE BLOOD COUNT 5.9 K/UL (4.8-10.8)
[2019-10-18 18:55] LABS: ANION GAP 10 mmol/L (5-15); BLOOD UREA NITROGEN 13 mg/dL (7-18); CALCIUM 9.2 MG/DL (8.5-10.1); CARBON DIOXIDE 27 MMOL/L (21-32); CHLORIDE 103 MMOL/L (98-107); CREATININE 0.8 MG/DL (0.55-1.30); POTASSIUM 3.5 MMOL/L (3.5-5.1); SODIUM 140 MMOL/L (136-145)
[2019-10-18 19:00] LABS: ALANINE AMINOTRANSFERASE 22 U/L (12-78); ALBUMIN 3.6 G/DL (3.4-5.0); ALBUMIN/GLOBULIN RATIO 0.8 (1.0-2.7); ALKALINE PHOSPHATASE 54 U/L (46-116); ASPARTATE AMINO TRANSFERASE 13 U/L (15-37); BILIRUBIN,TOTAL 0.4 MG/DL (0.2-1.0)
--- NOTE | 2019-10-18 19:09 | NUR ---
HAND-OFF: Report given to ANNAMARIA Watson. Pt is in stable condition; plan of care endorsed.
[2019-10-18 19:10] VITALS: BP 144/79
--- NOTE | 2019-10-18 19:10 | NUR ---
ED Nurse Note: Report received from ANNAMARIA Trevizo. Pt is aaox4, no acute distress noted. 20g IV on L AC is patent and intact, will continue to monitor.
[2019-10-18 19:35] VITALS: BP 138/80
--- NOTE | 2019-10-18 19:35 | NUR ---
ER DISCHARGE NOTE: Patient is cleared to be discharged per ERMD, pt is aox4, on room air, with stable vital signs. pt was given dc instructions, pt was able to verbalize understanding, pt id band and iv site removed without complications. pt is able to ambulate with steady gait. pt took all belongings.
--- NOTE | 2019-10-18 21:05 | Emergency Room Report ---
History of Present Illness General Chief Complaint: General Complaint Source: Patient Present Illness HPI 54-year-old female presents ED for evaluation. Patient states she is having burning pain to her left arm and left side chest. Tingling sensation in her lips and face for last 2 days. 8 out of 10, nonradiating. Denies shortness of breath. Denies headaches blurry vision nausea or vomiting. Denies arm or leg weakness. Denies slurred speech or facial droop. Has been here previously for similar symptoms. No other aggravating relieving factors. Denies any other associated symptoms Allergies: Coded Allergies: No Known Allergies (Unverified , 12/23/12) Patient History Past Medical History: HTN Past Surgical History: none Pertinent Family History: none Social History: Denies: smoking, alcohol use, drug use Last Menstrual Period: HYSTERECTOMY Now: No Immunizations: UTD Reviewed Nursing Documentation: PMH: Agreed; PSxH: Agreed Nursing Documentation-PMH Past Medical History: No Stated History Hx Cardiac Problems: No - Hystrectomy Hx Hypertension: Yes Hx Pacemaker: No Hx Asthma: No Hx COPD: No Hx Diabetes: No Hx Cerebrovascular Accident: No Hx Seizures: No Review of Systems All Other Systems: negative except mentioned in HPI Physical Exam Vital Signs Date Time Temp Pulse Resp B/P (MAP) Pulse Ox O2 Delivery O2 Flow Rate FiO2 10/18/19 17:46 98.2 88 18 132/72 (92) 99 Room Air Sp02 EP Interpretation: reviewed, normal General Appearance: no apparent distress, alert, GCS 15, non-toxic, obese Head: normocephalic, atraumatic Eyes: bilateral eye normal inspection, bilateral eye PERRL ENT: hearing grossly normal, normal pharynx, no angioedema, normal voice Neck: full range of motion, supple/symm/no masses Respiratory: chest non-tender, lungs clear, normal breath sounds, speaking full sentences Cardiovascular #1: regular rate, rhythm, no edema Cardiovascular #2: 2+ carotid (R), 2+ carotid (L), 2+ radial (R), 2+ radial (L) , 2+ dorsalis pedis (R), 2+ dorsalis pedis (L) Gastrointestinal: normal bowel sounds, non tender, soft, non-distended, no guarding, no rebound Rectal: deferred Genitourinary: normal inspection, no CVA tenderness Musculoskeletal: back normal, normal range of motion, gait/station normal, non- tender Neurologic: alert, motor strength/tone normal, handyman III-XII nml as tested, oriented x3, sensory intact, responsive, speech normal Psychiatric: judgement/insight normal, memory normal, mood/affect normal, no suicidal/homicidal ideation Reflexes: 3+ bicep (R), 3+ bicep (L), 3+ tricep (R), 3+ tricep (L), 3+ knee (R) , 3+ knee (L) Skin: no rash Lymphatic: no adenopathy Medical Decision Making Diagnostic Impression: Primary Impression: Paresthesias ER Course Hospital Course 54-year-old F presents ED complaining of L sided burning sensation, paranesthesias to face Differential diagnoses include: neuropathy, RI/unstable angina, contusion, muscle strain Clinical course Patient placed on stretcher. After initial history and physical I ordered labs , EKG, chest x-ray. labs reviewed- all electrolytes normal, troponins negative, no leukocytosis, hemoglobin/hematocrit stable EKG - NSR no acute ischemic changes inteprreted by me Chest x-ray-no cardiomegaly, no rib fracture, no pneumothorax, no acute process I reviewed EMR. Patient has been here several times for similar paresthesias. Has had multiple CTs of head. Cranial nerves II through XII intact. No focal deficits. I see no reason to repeat imaging at this time. Patient agrees. Troponin negative. EKG normal. I believe patient would benefit from outpatient neurology evaluation. Patient states she will follow-up with her PMD. Safe for discharge for close outpatient follow-up I. I feel this is a highly complex case requiring extensive working including EKG/Rhythm strip, Xray/CT/US, Blood/urine lab work, repeat exams while in ED, and administration of strong opiates/narcotics for pain control, admission to hospital or close patient follow up. Diagnosis - parasthesias Stable and discharged to home. Instructed to followup with PMD. Return to ED if symptoms recur or worsen Labs Test 10/18/19 16:30 White Blood Count 5.9 K/UL (4.8-10.8) Red Blood Count 4.77 M/UL (4.20-5.40) Hemoglobin 13.6 G/DL (12.0-16.0) Hematocrit 41.2 % (37.0-47.0) Mean Corpuscular Volume 86 FL (80-99) Mean Corpuscular Hemoglobin 28.5 PG (27.0-31.0) Mean Corpuscular Hemoglobin Concent 33.0 G/DL (32.0-36.0) Red Cell Distribution Width 12.6 % (11.6-14.8) Platelet Count 267 K/UL (150-450) Mean Platelet Volume 8.0 FL (6.5-10.1) Neutrophils (%) (Auto) 55.5 % (45.0-75.0) Lymphocytes (%) (Auto) 34.2 % (20.0-45.0) Monocytes (%) (Auto) 5.8 % (1.0-10.0) Eosinophils (%) (Auto) 2.2 % (0.0-3.0) Basophils (%) (Auto) 2.4 % (0.0-2.0) Sodium Level 140 MMOL/L (136-145) Potassium Level 3.5 MMOL/L (3.5-5.1) Chloride Level 103 MMOL/L (98-107) Carbon Dioxide Level 27 MMOL/L (21-32) Anion Gap 10 mmol/L (5-15) Blood Urea Nitrogen 13 mg/dL (7-18) Creatinine 0.8 MG/DL (0.55-1.30) Estimat Glomerular Filtration Rate > 60 mL/min (>60) Glucose Level 114 MG/DL (74-106) Calcium Level 9.2 MG/DL (8.5-10.1) Total Bilirubin 0.4 MG/DL (0.2-1.0) Aspartate Amino Transf (AST/SGOT) 13 U/L (15-37) Alanine Aminotransferase (ALT/SGPT) 22 U/L (12-78) Alkaline Phosphatase 54 U/L (46-116) Troponin I 0.000 ng/mL (0.000-0.056) Total Protein 8.1 G/DL (6.4-8.2) Albumin 3.6 G/DL (3.4-5.0) Globulin 4.5 g/dL Albumin/Globulin Ratio 0.8 (1.0-2.7) EKG Diagnostic Results Rate: normal Rhythm: NSR ST Segments: no acute changes ASA given to the pt in ED: No Rhythm Strip Diag. Results EP Interpretation: yes Rhythm: NSR, no PVC's, no ectopy Chest X-Ray Diagnostic Results Chest X-Ray Diagnostic Results : Chest X-Ray Ordered: Yes # of Views/Limited/Complete: 1 View Indication: Chest Pain EP Interpretation: Yes Interpretation: no consolidation, no effusion, no pneumothorax, no acute cardiopulmonary disease Impression: No acute disease Electronically Signed by: Electronically signed by Donnell Marie MD Last Vital Signs Date Time Temp Pulse Resp B/P (MAP) Pulse Ox O2 Delivery O2 Flow Rate FiO2 10/18/19 19:35 98.0 80 18 138/80 99 Room Air Status: improved Disposition: HOME, SELF-CARE Condition: Stable Patient Instructions: Paresthesia, [id number] Additional Instructions: you need to followup with neurology as outpatient Donnell Marie MD Oct 18, 2019 21:05
--- NOTE | 2019-10-19 10:47 | Diagnostic Imaging Report ---
Indication: Chest Technique: One view of the chest Comparison: 10/01/2019 Findings: Lungs and pleural spaces are clear. Heart size is normal. No significant interim change Impression: No acute process
== END 2019-10-18 19:35 | disposition home or self-care (01) ==
LOC: EMR 17:59
DX: R20.2 Paresthesia of skin (principal); I10 Essential (primary) hypertension; Z90.710 Acquired absence of both cervix and uterus; E66.9 Obesity, unspecified; Z68.41 Body mass index [BMI] 40.0-44.9, adult
CPT/HCPCS: 36415; 71045; 80053; 84484; 85025; 93005; Z7502; 99283

== ENCOUNTER 2019-11-08 20:33 | Emergency (ER) | payer MEDICAID ==
[~2019-11-08] VITALS: Ht 162.6 cm; Wt 120.7 kg
[2019-11-08 20:50] VITALS: BP 135/82
--- NOTE | 2019-11-08 20:50 | NUR ---
ED Nurse Note: Patient walked in from home d/t burning during urination x 2 days, denies fever. Patient aao x 4 and ambulatory with steady gait. Pain 3/10 during urinating. Patient stable upon assessment.
--- NOTE | 2019-11-08 20:50 | NUR ---
ED Nurse Note: Urine collected and sent to lab.
--- NOTE | 2019-11-08 21:10 | Emergency Room Report ---
History of Present Illness General Chief Complaint: Female Urogenital Problems Source: Patient Present Illness HPI Is a 54-year-old female with history of high blood pressure. She presents with chief complaint lower back pain and dysuria. Also with some urgency. Onset yesterday. She has a history of urinary tract infection before. No fever chills but no upper back pain. No nausea no vomiting. Worse with urination. Better with rest. Pain is 7 out of 10. Allergies: Coded Allergies: No Known Allergies (Unverified , 12/23/12) Patient History Past Medical History: see triage record, old chart reviewed, HTN Past Surgical History: other Pertinent Family History: none Social History: Denies: smoking Now: No Immunizations: other Reviewed Nursing Documentation: PMH: Agreed; PSxH: Agreed Nursing Documentation-PMH Past Medical History: No History, Except For Hx Cardiac Problems: No - Hystrectomy Hx Hypertension: Yes Hx Pacemaker: No Hx Asthma: No Hx COPD: No Hx Diabetes: No Hx Cerebrovascular Accident: No Hx Seizures: No Review of Systems Eye: Denies: eye pain, blurred vision ENT: Denies: ear pain, nose congestion, throat swelling Respiratory: Denies: cough, shortness of breath Cardiovascular: Denies: chest pain, palpitations Gastrointestinal: Denies: abdominal pain, diarrhea, nausea, vomiting Genitourinary: Reports: frequency, urgency Musculoskeletal: Reports: back pain; Denies: joint pain Skin: Denies: rash Neurological: Denies: headache, numbness Endocrine: Denies: increased thirst, increased urine Hematologic/Lymphatic: Denies: easy bruising All Other Systems: negative except mentioned in HPI Physical Exam Vital Signs Date Time Temp Pulse Resp B/P (MAP) Pulse Ox O2 Delivery O2 Flow Rate FiO2 11/08/19 20:44 97.7 83 18 140/83 (102) 95 Room Air Vitals unremarkable Sp02 EP Interpretation: reviewed, normal General Appearance: well appearing, no apparent distress, alert, obese Head: normocephalic, atraumatic Eyes: bilateral eye PERRL, bilateral eye EOMI ENT: hearing grossly normal, normal pharynx Neck: full range of motion, supple, no meningismus Respiratory: chest non-tender, lungs clear, normal breath sounds Cardiovascular #1: regular rate, rhythm, no murmur Gastrointestinal: normal bowel sounds, non tender, no mass, no organomegaly, no bruit, non-distended Musculoskeletal: back normal, normal range of motion, gait/station normal Psychiatric: mood/affect normal Medical Decision Making Diagnostic Impression: Primary Impression: Urinary tract infection Qualified Codes: N30.00 - Acute cystitis without hematuria ER Course This patient presents with symptom consistent with UTI. No evidence of pyelonephritis. No evidence of ACS PE, dissection Last Vital Signs Date Time Temp Pulse Resp B/P (MAP) Pulse Ox O2 Delivery O2 Flow Rate FiO2 11/08/19 20:44 97.7 83 18 140/83 (102) 95 Room Air Status: improved Disposition: HOME, SELF-CARE Condition: Stable Scripts Cephalexin* (KEFLEX*) 500 Mg Tablet 500 MG ORAL TID, #21 CAP Prov: Jose Brady MD 11/08/19 [facility]: [facility],REFERRING (PCP) Patient Instructions: Urinary Tract Infection Additional Instructions: Increase fluids. Follow-up with in 7 days. I recommend taking probiotics to decrease the risks of diarrhea. Return if symptoms worsen. Jose Brady MD Nov 08, 2019 21:10
[2019-11-08 21:35] LABS: APPEARANCE,URINE SLIGHTLY CLOUDY; BILIRUBIN, URINE NEGATIVE (NEGATIVE); COLOR,URINE PALE YELLOW; GLUCOSE, URINE (UA) NEGATIVE (NEGATIVE); KETONES,URINE NEGATIVE (NEGATIVE); LEUKOCYTE ESTERASE ,URINE 3+ (NEGATIVE); NITRITE,URINE NEGATIVE (NEGATIVE); PH,URINE 7 (4.5-8.0); PROTEIN,URINE 1+ (NEGATIVE); UROBILINOGEN,URINE NORMAL MG/DL (0.0-1.0)
[2019-11-08] MEDS ORDERED: Cephalexin 500mg cap ORAL ONE (21:45)
[2019-11-08] MEDS ORDERED: CEPHALEXIN500 M1 ORAL (21:46)
[2019-11-08 21:50] VITALS: BP 138/85
--- NOTE | 2019-11-08 21:50 | NUR ---
ER DISCHARGE NOTE: Patient is cleared to be discharged per ERMD, pt is aox4, on room air, with stable vital signs. pt was given dc and prescription instructions, pt was able to verbalize understanding, pt id band removed. pt is able to ambulate with steady gait. pt took all belongings. pt stable upon discharge.
== END 2019-11-08 21:50 | disposition home or self-care (01) ==
LOC: EMR 21:02
DX: N30.00 Acute cystitis without hematuria (principal); I10 Essential (primary) hypertension; Z90.710 Acquired absence of both cervix and uterus; M54.5 Low back pain
CPT/HCPCS: 81003; 81025; 87086; 87181; Z7502; 99283

== ENCOUNTER 2019-12-03 16:36 | Emergency (ER) | payer MEDICAID ==
[~2019-12-03] VITALS: Ht 162.6 cm; Wt 119.3 kg
[~2019-12-03 16:36] MED LIST changes: +CEPHALEXIN500 M1 ORAL
--- NOTE | 2019-12-03 16:44 | NUR ---
not in waiting room
[2019-12-03 17:15] VITALS: BP 101/62
--- NOTE | 2019-12-03 17:15 | NUR ---
ED Nurse Note: Pt walked into ED for c/o cramping in lower extremities and abdomen. Pt states she took a colon cleansing medication earlier this morning and had an episode of diarrhea. Pt also c/o light headedness and "feeling dehydrated". Pt is aaox4, no cough, breathing is normal and unlabored, no cardiac distress. IV line established, blood and urine specimen sent to lab.
--- NOTE | 2019-12-03 17:19 | Emergency Room Report ---
History of Present Illness General Chief Complaint: Pain Present Illness HPI 54-year-old female history of hypertension presenting with leg cramping. She states she took a laxative today had an episode of diarrhea also took her blood pressure medications and then started having some cramping in her legs and lower abdomen. No vomiting. No fevers. No cough or shortness of breath. She does complain of mild dysuria. Patient currently 8 out of 10 cramping nonradiating in the legs and lower abdomen. Allergies: Coded Allergies: No Known Allergies (Unverified , 12/23/12) COVID-19 Screening Contact w/high risk pt: No Recent Travel to affected area: No Experienced COVID-19 symptoms?: No Patient History Reviewed Nursing Documentation: PMH: Agreed; PSxH: Agreed Nursing Documentation-PMH Hx Cardiac Problems: No - Hystrectomy Hx Hypertension: Yes Hx Pacemaker: No Hx Asthma: Yes Hx COPD: No Hx Diabetes: No Hx Cerebrovascular Accident: No Hx Seizures: No Review of Systems All Other Systems: negative except mentioned in HPI Physical Exam Vital Signs Date Time Temp Pulse Resp B/P (MAP) Pulse Ox O2 Delivery O2 Flow Rate FiO2 12/03/19 16:57 98.4 90 16 101/62 (75) 97 Room Air Sp02 EP Interpretation: reviewed, normal General Appearance: well appearing, no apparent distress Head: normocephalic, atraumatic Eyes: bilateral eye PERRL, bilateral eye EOMI ENT: hearing grossly normal, moist mucus membranes Neck: full range of motion, supple Respiratory: lungs clear, normal breath sounds, no rhonchi, no respiratory distress, no retraction, no wheezing Cardiovascular #1: normal peripheral pulses, regular rate, rhythm, no murmur Gastrointestinal: non tender, soft, non-distended, no guarding Neurologic: alert, oriented x3, no focal defects Skin: normal color, warm/dry Medical Decision Making Diagnostic Impression: Primary Impression: Dehydration Additional Impressions: Muscle cramps Mild hyperglycemia ER Course Differential diagnosis included but not limited to electrolyte disturbance, dehydration, UTI to name a few. Patient in no acute distress on exam. Vital signs were stable. Laboratory studies showed no significant abnormalities. Blood glucose was mildly elevated. Patient has no history of diabetes. I explained that she needs to follow-up with her doctor this week for reassessment. She was drinking a sports drink in the ER which could have caused her blood sugar elevation. She denied any excessive urination or polydipsia. After IV fluid bolus patient feeling improved. On my reassessment nontoxic-appearing, no acute distress, stable for discharge with outpatient follow-up. Given return precautions. Stable for discharge. Laboratory Tests Test 12/03/19 17:20 White Blood Count 7.3 K/UL (4.8-10.8) Red Blood Count 4.85 M/UL (4.20-5.40) Hemoglobin 13.8 G/DL (12.0-16.0) Hematocrit 41.9 % (37.0-47.0) Mean Corpuscular Volume 86 FL (80-99) Mean Corpuscular Hemoglobin 28.5 PG (27.0-31.0) Mean Corpuscular Hemoglobin Concent 33.0 G/DL (32.0-36.0) Red Cell Distribution Width 12.5 % (11.6-14.8) Platelet Count 309 K/UL (150-450) Mean Platelet Volume 8.6 FL (6.5-10.1) Neutrophils (%) (Auto) 61.7 % (45.0-75.0) Lymphocytes (%) (Auto) 31.5 % (20.0-45.0) Monocytes (%) (Auto) 4.5 % (1.0-10.0) Eosinophils (%) (Auto) 0.5 % (0.0-3.0) Basophils (%) (Auto) 1.8 % (0.0-2.0) Urine Color Pale yellow Urine Appearance Clear Urine pH 7 (4.5-8.0) Urine Specific [place] 1.005 (1.005-1.035) Urine Protein Negative (NEGATIVE) Urine Glucose (UA) Negative (NEGATIVE) Urine Ketones Negative (NEGATIVE) Urine Blood Negative (NEGATIVE) Urine Nitrite Negative (NEGATIVE) Urine Bilirubin Negative (NEGATIVE) Urine Urobilinogen Normal MG/DL (0.0-1.0) Urine Leukocyte Esterase Negative (NEGATIVE) Sodium Level 132 MMOL/L (136-145) L Potassium Level 4.1 MMOL/L (3.5-5.1) Chloride Level 96 MMOL/L (98-107) L Carbon Dioxide Level 26 MMOL/L (21-32) Anion Gap 10 mmol/L (5-15) Blood Urea Nitrogen 15 mg/dL (7-18) Creatinine 0.8 MG/DL (0.55-1.30) Estimated Glomerular Filtration Rate > 60 mL/min (>60) Glucose Level 186 MG/DL (74-106) H Calcium Level 9.4 MG/DL (8.5-10.1) Total Bilirubin 0.5 MG/DL (0.2-1.0) Aspartate Amino Transferase (AST) 23 U/L (15-37) Alanine Aminotransferase (ALT) 25 U/L (12-78) Alkaline Phosphatase 61 U/L (46-116) Total Protein 8.4 G/DL (6.4-8.2) H Albumin 3.9 G/DL (3.4-5.0) Globulin 4.5 g/dL Albumin/Globulin Ratio 0.9 (1.0-2.7) L Last Vital Signs Date Time Temp Pulse Resp B/P (MAP) Pulse Ox O2 Delivery O2 Flow Rate FiO2 12/03/19 16:57 98.4 90 16 101/62 (75) 97 Room Air Status: improved Disposition: AGAINST MEDICAL ADVICE Condition: Stable Additional Instructions: Patient is instructed to follow-up with her primary care doctor, primary care clinic or formerly [facility] in 1 to 2 days. Patient instructed to return for any worsening symptoms or concerns. Please note that the documentation in this note was used with [email or web address] technology. Pleae be advised that this may lead to erroneous text due to misinterpretation by the dictation software Philippe Banks M.D. Dec 03, 2019 17:19
[2019-12-03 17:41] LABS: APPEARANCE,URINE CLEAR; BILIRUBIN, URINE NEGATIVE (NEGATIVE); COLOR,URINE PALE YELLOW; GLUCOSE, URINE (UA) NEGATIVE (NEGATIVE); KETONES,URINE NEGATIVE (NEGATIVE); LEUKOCYTE ESTERASE ,URINE NEGATIVE (NEGATIVE); NITRITE,URINE NEGATIVE (NEGATIVE); PH,URINE 7 (4.5-8.0); PROTEIN,URINE NEGATIVE (NEGATIVE); UROBILINOGEN,URINE NORMAL MG/DL (0.0-1.0)
[2019-12-03 17:43] LABS: BASOPHILS % (AUTO) 1.8 % (0.0-2.0); EOSINOPHILS % (AUTO) 0.5 % (0.0-3.0); HEMATOCRIT 41.9 % (37.0-47.0); HEMOGLOBIN 13.8 G/DL (12.0-16.0); LYMPHOCYTES % (AUTO) 31.5 % (20.0-45.0); MEAN CORPUSCULAR VOLUME 86 FL (80-99); MONOCYTES % (AUTO) 4.5 % (1.0-10.0); NEUTROPHILS % (AUTO) 61.7 % (45.0-75.0); PLATELET COUNT 309 K/UL (150-450); RED BLOOD COUNT 4.85 M/UL (4.20-5.40); RED CELL DISTRIBUTION WIDTH 12.5 % (11.6-14.8); WHITE BLOOD COUNT 7.3 K/UL (4.8-10.8)
[2019-12-03 17:46] LABS: ANION GAP 10 mmol/L (5-15); BLOOD UREA NITROGEN 15 mg/dL (7-18); CALCIUM 9.4 MG/DL (8.5-10.1); CARBON DIOXIDE 26 MMOL/L (21-32); CHLORIDE 96 MMOL/L (98-107); CREATININE 0.8 MG/DL (0.55-1.30); POTASSIUM 4.1 MMOL/L (3.5-5.1); SODIUM 132 MMOL/L (136-145)
[2019-12-03 17:51] LABS: ALANINE AMINOTRANSFERASE 25 U/L (12-78); ALBUMIN 3.9 G/DL (3.4-5.0); ALBUMIN/GLOBULIN RATIO 0.9 (1.0-2.7); ALKALINE PHOSPHATASE 61 U/L (46-116); ASPARTATE AMINO TRANSFERASE 23 U/L (15-37); BILIRUBIN,TOTAL 0.5 MG/DL (0.2-1.0)
[2019-12-03 18:40] VITALS: BP 109/74
== END 2019-12-03 18:40 | disposition left against medical advice (07) ==
LOC: EMR 17:19
DX: E86.0 Dehydration (principal); R25.2 Cramp and spasm; R73.9 Hyperglycemia, unspecified; I10 Essential (primary) hypertension; Z90.710 Acquired absence of both cervix and uterus; R30.0 Dysuria
CPT/HCPCS: 36415; 80053; 81003; 85025; 96360; Z7502; 99284

== ENCOUNTER 2019-12-05 11:59 | Emergency (ER) | payer MEDICAID ==
[~2019-12-05] VITALS: Ht 162.6 cm; Wt 119.3 kg
[2019-12-05 12:08] VITALS: BP 97/58
--- NOTE | 2019-12-05 12:10 | NUR ---
ED Nurse Note: pt walked in from home due to pain to urinate for one day. pt aao x4 and ambulatory. skin clean and intact. no N/V/D. no fever or SOB. no cardiac or pulmonary distress noted at this time.
--- NOTE | 2019-12-05 12:30 | NUR ---
ED Nurse Note: urine sent to lab.
--- NOTE | 2019-12-05 12:40 | NUR ---
ED Nurse Note: ERPA at bedside.
[2019-12-05 12:43] LABS: APPEARANCE,URINE CLEAR; BILIRUBIN, URINE NEGATIVE (NEGATIVE); COLOR,URINE PALE YELLOW; GLUCOSE, URINE (UA) NEGATIVE (NEGATIVE); KETONES,URINE NEGATIVE (NEGATIVE); NITRITE,URINE NEGATIVE (NEGATIVE); UROBILINOGEN,URINE NORMAL MG/DL (0.0-1.0)
[2019-12-05 12:49] LABS: LEUKOCYTE ESTERASE ,URINE NEGATIVE (NEGATIVE); PH,URINE 6.5 (4.5-8.0); PROTEIN,URINE NEGATIVE (NEGATIVE)
--- NOTE | 2019-12-05 13:00 | Emergency Room Report ---
History of Present Illness General Chief Complaint: Female Urogenital Problems Source: Patient Present Illness HPI 54-year-old female with no significant past medical history here complaining of 1 day of urinary frequency. Patient was seen at [facility] yesterday for dehydration. Complete blood work was done and all within normal limits. Urine was negative. Patient was seen at [facility] a month ago for UTI symptoms and Keflex was given. Patient denies any dysuria, fever and chills, URI symptoms, abdominal pain, nausea vomiting diarrhea. Denies all other associated symptoms. Reports that she is postmenopausal denies . Allergies: Coded Allergies: No Known Allergies (Unverified , 12/23/12) COVID-19 Screening Contact w/high risk pt: No Recent Travel to affected area: No Experienced COVID-19 symptoms?: No Patient History Past Medical History: see triage record Past Surgical History: none Pertinent Family History: none Last Menstrual Period: partial hystrectomy Now: No Immunizations: UTD Reviewed Nursing Documentation: PMH: Agreed; PSxH: Agreed Nursing Documentation-PMH Past Medical History: No History, Except For Hx Cardiac Problems: No Hx Hypertension: Yes Hx Pacemaker: No Hx Asthma: No Hx COPD: No Hx Diabetes: No Hx Cancer: No Hx Gastrointestinal Problems: No Hx Dialysis: No History Of Psychiatric Problem: No Hx Neurological Problems: No Hx Cerebrovascular Accident: No Hx Seizures: No Review of Systems All Other Systems: negative except mentioned in HPI Physical Exam Vital Signs Date Time Temp Pulse Resp B/P (MAP) Pulse Ox O2 Delivery O2 Flow Rate FiO2 12/05/19 12:08 97.2 77 14 97/58 (71) 96 Room Air Sp02 EP Interpretation: reviewed, normal General Appearance: no apparent distress, alert, GCS 15, non-toxic Head: normocephalic, atraumatic Eyes: bilateral eye normal inspection, bilateral eye PERRL ENT: hearing grossly normal, normal pharynx, no angioedema, normal voice Neck: full range of motion, supple/symm/no masses Respiratory: chest non-tender, lungs clear, normal breath sounds, no rhonchi, speaking full sentences Cardiovascular #1: regular rate, rhythm, no edema Gastrointestinal: non tender, soft Genitourinary: no CVA tenderness Musculoskeletal: back normal Neurologic: alert, oriented Psychiatric: judgement/insight normal, memory normal, mood/affect normal, no suicidal/homicidal ideation Skin: no rash Lymphatic: no adenopathy Medical Decision Making PA Attestation All my diagnosis and treatment plans were reviewed ad discussed with my supervising physician Dr. Cristobal Diagnostic Impression: Primary Impression: Urinary frequency Additional Impression: Vaginitis ER Course 54-year-old female with no significant past medical history here complaining of 1 day of urinary frequency. Patient was seen at [facility] yesterday for dehydration. Complete blood work was done and all within normal limits. Urine was negative. Patient was seen at [facility] a month ago for UTI symptoms and Keflex was given. Patient denies any dysuria, fever and chills, URI symptoms, abdominal pain, nausea vomiting diarrhea. Denies all other associated symptoms. Reports that she is postmenopausal denies . Ddx considered but are not limited to: UTI, pyelonephritis, urinary incontinence , prolapsed bladder Vital signs: are WNL, pt. is afebrile H&PE are most consistent with: Urinary frequency, vaginitis, urinary incontinence ORDERS: UA, urine cx, Macrobid, Diflucan, Pyridium ED INTERVENTIONS: None required at this time. DISCHARGE: At this time pt. is stable for d/c to home. Will provide printed patient care instructions, and any necessary prescriptions. Care plan and follow up instructions have been discussed with the patient prior to discharge. Follow-up with your primary doctor as you may have urinary incontinence stay home and stay safe. Complete blood work was done yesterday no further imaging or blood work is needed. Need to stay home and stay safe. Increase oral hydration. Antibiotics given for symptom relief however no signs of infection noted in your urine. Last Vital Signs Date Time Temp Pulse Resp B/P (MAP) Pulse Ox O2 Delivery O2 Flow Rate FiO2 12/05/19 12:08 97.2 14 97/58 96 Room Air 12/05/19 12:08 77 Disposition: HOME, SELF-CARE Condition: Stable Scripts Fluconazole (FLUCONAZOLE) 100 Mg Tablet 150 MG ORAL ONCE for 1 Day, #2 TAB 0 Refills Prov: Douglas Quiñones 12/05/19 Phenazopyridine Hcl* (PYRIDIUM*) 200 Mg Tablet 200 MG ORAL THREE TIMES A DAY for 2 Days, #6 TAB 0 Refills Prov: Douglas Quiñones 12/05/19 Nitrofurantoin Monohyd/M-Cryst* (MACROBID 100 MG*) 100 Mg Capsule 100 MG ORAL EVERY 12 HOURS for 7 Days, #14 CAP Prov: Douglas Quiñones 12/05/19 Referrals: [facility],REFERR[facility] (PCP) Patient Instructions: Vaginitis, Urinary Tract Infection Additional Instructions: Take medication as directed, follow with primary care doctor, staying home and stay safe Douglas Quiñones Dec 05, 2019 13:00
[2019-12-05] MEDS ORDERED: NITROFURANTOIN100 M2 ORAL (13:01)
[2019-12-05] MEDS ORDERED: PHENAZOPYRIDIN200 MG ORAL (13:01)
[2019-12-05] MEDS ORDERED: FLUCONAZOLE100 MG ORAL (13:01)
[2019-12-05 13:18] VITALS: BP 101/84
--- NOTE | 2019-12-05 13:20 | NUR ---
ED Nurse Note: Pt cleared by health care Provider for discharge. DC instructions/prescription was given and explained to pt and verbalized understanding of teachings. All medical deviecs such as ID band removed. Pt is AAO x4, ambulatory and left with all personal belongings.
== END 2019-12-05 13:20 | disposition home or self-care (01) ==
LOC: EMR 12:35
DX: R35.0 Frequency of micturition (principal); N76.0 Acute vaginitis; Z90.710 Acquired absence of both cervix and uterus; I10 Essential (primary) hypertension
CPT/HCPCS: 81003; Z7502; 99282

== ENCOUNTER 2020-01-05 16:14 | Emergency (ER) | payer MEDICAID ==
[~2020-01-05] VITALS: Ht 162.6 cm; Wt 113.4 kg
[~2020-01-05 16:14] MED LIST changes: +FLUCONAZOLE100 MG ORAL; +NITROFURANTOIN100 M2 ORAL; +PHENAZOPYRIDIN200 MG ORAL
[2020-01-05 16:30] VITALS: BP 130/75
[2020-01-05] MEDS ORDERED: DiphenhydrAMINE 50mg/ml Inj IVP ONE (16:30)
[2020-01-05] MEDS ORDERED: Metoclopramide 10mg/2ml Inj IVP ONE (16:30)
[2020-01-05] MEDS ORDERED: VENTOLIN HFA18 GM INH (16:38)
[2020-01-05] MEDS ORDERED: FLUTICASONE PRO16 G1 NASAL (16:38)
[2020-01-05] MEDS ORDERED: TYLENOL325 MG ORAL (16:38)
--- NOTE | 2020-01-05 16:42 | Emergency Room Report ---
History of Present Illness General Chief Complaint: General Complaint Source: Patient Present Illness HPI 54-year-old female presents with vague complaints of numbness tingling in the hands, arms, started this morning 6 AM has been intermittent, no aggravating relieving factors severity is mild, no facial droop no weakness in the legs, patient states this is happened previously in the past before patient denies any current chest pain or shortness of breath patient was sent by her primary care doctor for ACS evaluation and stroke evaluation Allergies: Coded Allergies: No Known Allergies (Unverified , 12/23/12) COVID-19 Screening Contact w/high risk pt: No Recent Travel to affected area: No Experienced COVID-19 symptoms?: No Patient History Past Medical History: see triage record Reviewed Nursing Documentation: PMH: Agreed; PSxH: Agreed Nursing Documentation-PMH Hx Cardiac Problems: No Hx Hypertension: Yes Hx Pacemaker: No Hx Asthma: No Hx COPD: No Hx Diabetes: No Hx Cancer: No Hx Gastrointestinal Problems: No Hx Dialysis: No Hx Neurological Problems: No Hx Cerebrovascular Accident: No Hx Seizures: No Review of Systems All Other Systems: negative except mentioned in HPI Physical Exam Vital Signs Date Time Temp Pulse Resp B/P (MAP) Pulse Ox O2 Delivery O2 Flow Rate FiO2 20 16:25 98.1 101 22 130/75 (93) 100 Room Air Sp02 EP Interpretation: reviewed, normal General Appearance: well appearing, no apparent distress, alert Head: normocephalic, atraumatic Eyes: bilateral eye PERRL, bilateral eye EOMI ENT: uvula midline, moist mucus membranes Neck: supple, thyroid normal, supple/symm/no masses Respiratory: lungs clear, no respiratory distress, no retraction, no accessory muscle use Cardiovascular #1: normal peripheral pulses, regular rate, rhythm, no edema, no gallop, no murmur Gastrointestinal: non tender, soft, no guarding, no rebound Musculoskeletal: normal inspection Neurologic: alert, motor strength/tone normal, 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 nml as tested, oriented x3, cerebellar normal, responsive, no pronator Psychiatric: mood/affect normal Skin: no rash, warm/dry Medical Decision Making Diagnostic Impression: Primary Impression: Encounter for generalized patient complaints Additional Impression: Paresthesias ER Course 54-year-old female presents with vague complaints NIHSS of 0 MRI negative, troponin negative, EKG negative Counseled patient disposition home with return precautions follow-up with PCP Laboratory Tests Test 01/05/20 16:45 White Blood Count 6.5 K/UL (4.8-10.8) Red Blood Count 4.57 M/UL (4.20-5.40) Hemoglobin 12.9 G/DL (12.0-16.0) Hematocrit 40.9 % (37.0-47.0) Mean Corpuscular Volume 89 FL (80-99) Mean Corpuscular Hemoglobin 28.3 PG (27.0-31.0) Mean Corpuscular Hemoglobin Concent 31.6 G/DL (32.0-36.0) L Red Cell Distribution Width 12.3 % (11.6-14.8) Platelet Count 234 K/UL (150-450) Mean Platelet Volume 8.7 FL (6.5-10.1) Neutrophils (%) (Auto) 64.4 % (45.0-75.0) Lymphocytes (%) (Auto) 27.0 % (20.0-45.0) Monocytes (%) (Auto) 5.3 % (1.0-10.0) Eosinophils (%) (Auto) 1.9 % (0.0-3.0) Basophils (%) (Auto) 1.5 % (0.0-2.0) Sodium Level 140 MMOL/L (136-145) Potassium Level 3.5 MMOL/L (3.5-5.1) Chloride Level 105 MMOL/L (98-107) Carbon Dioxide Level 23 MMOL/L (21-32) Anion Gap 12 mmol/L (5-15) Blood Urea Nitrogen 15 mg/dL (7-18) Creatinine 0.9 MG/DL (0.55-1.30) Estimated Glomerular Filtration Rate > 60 mL/min (>60) Glucose Level 108 MG/DL (74-106) H Calcium Level 9.3 MG/DL (8.5-10.1) Total Bilirubin 0.6 MG/DL (0.2-1.0) Aspartate Amino Transferase (AST) 17 U/L (15-37) Alanine Aminotransferase (ALT) 39 U/L (12-78) Alkaline Phosphatase 43 U/L (46-116) L Troponin I 0.000 ng/mL (0.000-0.056) Total Protein 8.0 G/DL (6.4-8.2) Albumin 3.8 G/DL (3.4-5.0) Globulin 4.2 g/dL Albumin/Globulin Ratio 0.9 (1.0-2.7) L EKG Diagnostic Results EKG Time: 17:21 EP Interpretation: NSR, rate 77, QTc 423, left axis deviation no acute ST elevations Rhythm Strip Diag. Results Rhythm Strip Time: 17:28 EP Interpretation: yes Rate: 78 Rhythm: NSR, no PVC's, no ectopy Chest X-Ray Diagnostic Results Chest X-Ray Diagnostic Results : Chest X-Ray Ordered: Yes # of Views/Limited/Complete: 1 View Indication: Chest Pain EP Interpretation: Yes Interpretation: no consolidation, no effusion, no pneumothorax, no acute cardiopulmonary disease Impression: No acute disease Electronically Signed by: Julius Lemons MD CT/MRI/US Diagnostic Results CT/MRI/US Diagnostic Results : Impression Procedure: MRI Brain no Contrast EXAM: MR Head Without Intravenous Contrast CLINICAL HISTORY: H/A TECHNIQUE: Magnetic resonance images of the head/brain without intravenous contrast in multiple planes. COMPARISON: CT head on 03/22/2019 FINDINGS: Brain: No restricted diffusion to suggest acute infarct. No hemorrhage. Ventricles: Unremarkable. No ventriculomegaly. Bones/joints: Hyperostosis frontalis interna. Sinuses: Mild mucosal thickening in the ethmoid air cells. No acute sinusitis. Mastoid air cells: Unremarkable as visualized. No mastoid effusion. Orbits: Unremarkable as visualized. IMPRESSION: No acute findings in the head/brain. Dictated By: Christie Robert MD Electronically Signed By: Christie Robert MD Signed Date/Time 01/05/20 [id number] CC: Julius Lemons MD Last Vital Signs Date Time Temp Pulse Resp B/P (MAP) Pulse Ox O2 Delivery O2 Flow Rate FiO2 01/05/20 16:25 98.1 101 22 130/75 (93) 100 Room Air Disposition: HOME, SELF-CARE Condition: Stable Referrals: [facility] Patient Instructions: Nonspecific Chest Pain, [id number] Additional Instructions: The patient was provided with discharge instructions, notified to follow-up with a primary care doctor and or specialist in the next 24-48 hours, and to return to the ED if they have worsening of their symptoms. Please note that this report is being documented using DRAGON technology. This can lead to erroneous entry secondary to incorrect interpretation by the dictating instrument. Procedure: MRI Brain no Contrast EXAM: MR Head Without Intravenous Contrast CLINICAL HISTORY: H/A TECHNIQUE: Magnetic resonance images of the head/brain without intravenous contrast in multiple planes. COMPARISON: CT head on 03/22/2019 FINDINGS: Brain: No restricted diffusion to suggest acute infarct. No hemorrhage. Ventricles: Unremarkable. No ventriculomegaly. Bones/joints: Hyperostosis frontalis interna. Sinuses: Mild mucosal thickening in the ethmoid air cells. No acute sinusitis. Mastoid air cells: Unremarkable as visualized. No mastoid effusion. Orbits: Unremarkable as visualized. IMPRESSION: No acute findings in the head/brain. Dictated By: Christie Robert MD Electronically Signed By: Christie Robert MD Signed Date/Time 01/05/20 1728 CC: Julius Lemons MD, Jonathan MD January 05, 2020 16:42
--- NOTE | 2020-01-05 17:18 | Diagnostic Imaging Report ---
Indication: Shortness of breath Technique: One view of the chest Comparison: 10/18/2019 Findings: Lungs pleural spaces are clear. The heart size is normal. No significant change Impression: No acute process
[2020-01-05 17:22] LABS: BASOPHILS % (AUTO) 1.5 % (0.0-2.0); EOSINOPHILS % (AUTO) 1.9 % (0.0-3.0); HEMATOCRIT 40.9 % (37.0-47.0); HEMOGLOBIN 12.9 G/DL (12.0-16.0); MEAN CORPUSCULAR VOLUME 89 FL (80-99); MONOCYTES % (AUTO) 5.3 % (1.0-10.0); NEUTROPHILS % (AUTO) 64.4 % (45.0-75.0); PLATELET COUNT 234 K/UL (150-450); RED BLOOD COUNT 4.57 M/UL (4.20-5.40); RED CELL DISTRIBUTION WIDTH 12.3 % (11.6-14.8); WHITE BLOOD COUNT 6.5 K/UL (4.8-10.8)
--- NOTE | 2020-01-05 17:28 | Diagnostic Imaging Report ---
EXAM: MR Head Without Intravenous Contrast CLINICAL HISTORY: H/A TECHNIQUE: Magnetic resonance images of the head/brain without intravenous contrast in multiple planes. COMPARISON: CT head on 03/22/2019 FINDINGS: Brain: No restricted diffusion to suggest acute infarct. No hemorrhage. Ventricles: Unremarkable. No ventriculomegaly. Bones/joints: Hyperostosis frontalis interna. Sinuses: Mild mucosal thickening in the ethmoid air cells. No acute sinusitis. Mastoid air cells: Unremarkable as visualized. No mastoid effusion. Orbits: Unremarkable as visualized. IMPRESSION: No acute findings in the head/brain.
[2020-01-05 17:44] LABS: ANION GAP 12 mmol/L (5-15); BLOOD UREA NITROGEN 15 mg/dL (7-18); CALCIUM 9.3 MG/DL (8.5-10.1); CARBON DIOXIDE 23 MMOL/L (21-32); CHLORIDE 105 MMOL/L (98-107); CREATININE 0.9 MG/DL (0.55-1.30); POTASSIUM 3.5 MMOL/L (3.5-5.1); SODIUM 140 MMOL/L (136-145)
[2020-01-05 17:52] LABS: ALANINE AMINOTRANSFERASE 39 U/L (12-78); ALBUMIN 3.8 G/DL (3.4-5.0); ALBUMIN/GLOBULIN RATIO 0.9 (1.0-2.7); ALKALINE PHOSPHATASE 43 U/L (46-116); ASPARTATE AMINO TRANSFERASE 17 U/L (15-37); BILIRUBIN,TOTAL 0.6 MG/DL (0.2-1.0)
[2020-01-05 17:59] VITALS: BP 127/78
== END 2020-01-05 18:11 | disposition home or self-care (01) ==
LOC: EMR 16:30
DX: R20.2 Paresthesia of skin (principal); I10 Essential (primary) hypertension
CPT/HCPCS: 36415; 70551; 71045; 80053; 84484; 85025; 93005; 96360; J7030; Z7502; 99284

== ENCOUNTER 2020-01-11 19:04 | Emergency (ER) | payer MEDICAID, OTHER ==
[~2020-01-11] VITALS: Ht 162.6 cm; Wt 113.4 kg
[~2020-01-11 19:04] MED LIST changes: +FLUTICASONE PRO16 G1 NASAL; +TYLENOL325 MG ORAL; +VENTOLIN HFA18 GM INH
--- NOTE | 2020-01-11 19:30 | NUR ---
ED Nurse Note: Patient walked in to ER from home due to constipation x 5 days. Collecting Urine. Addendum: 01/11/20 at 3 by [email or web address] ED Nurse Note: time was 1919
[2020-01-11 19:45] LABS: APPEARANCE,URINE SLIGHTLY CLOUDY; BILIRUBIN, URINE NEGATIVE (NEGATIVE); COLOR,URINE PALE YELLOW; GLUCOSE, URINE (UA) NEGATIVE (NEGATIVE); KETONES,URINE NEGATIVE (NEGATIVE); LEUKOCYTE ESTERASE ,URINE NEGATIVE (NEGATIVE); NITRITE,URINE NEGATIVE (NEGATIVE); PH,URINE 7 (4.5-8.0); PROTEIN,URINE NEGATIVE (NEGATIVE); UROBILINOGEN,URINE NORMAL MG/DL (0.0-1.0)
--- NOTE | 2020-01-11 19:53 | Emergency Room Report ---
History of Present Illness General Chief Complaint: Constipation Present Illness HPI 54-year-old female with history of hypertension currently controlled and being here several times for paresthesia with the most recent complete work-up with MRI that was done 1 week ago here complaining of continuous procedure as well as 5 days of constipation. Patient reports that she has been making bowel movement however with difficulty and denies any blood in stool. Denies use of narcotics at this time. Denies abdominal pain, nausea vomiting. Also complains of urinary frequency that has been ongoing for several months. Patient also reports that she has addressed her primary doctor. Appears to be coming here a lot for the symptoms. In no apparent distress. Afebrile and oxygenation within normal limits. Has not yet had a colonoscopy. Allergies: Coded Allergies: No Known Allergies (Unverified , 12/23/12) COVID-19 Screening Contact w/high risk pt: No Recent Travel to affected area: No Experienced COVID-19 symptoms?: No COVID-19 Testing performed DISTRICT OPERATIONS MANAGER: No Patient History Past Medical History: see triage record Past Surgical History: none Pertinent Family History: none Now: No Immunizations: UTD Reviewed Nursing Documentation: PMH: Agreed; PSxH: Agreed Nursing Documentation-PMH Hx Cardiac Problems: No Hx Hypertension: Yes Hx Pacemaker: No Hx Asthma: No Hx COPD: No Hx Diabetes: No Hx Cancer: No Hx Gastrointestinal Problems: No Hx Dialysis: No Hx Neurological Problems: No Hx Cerebrovascular Accident: No Hx Seizures: No Review of Systems All Other Systems: negative except mentioned in HPI Physical Exam Vital Signs Date Time Temp Pulse Resp B/P (MAP) Pulse Ox O2 Delivery O2 Flow Rate FiO2 01/11/20 19:11 98.2 68 20 144/95 (111) 96 Room Air Sp02 EP Interpretation: reviewed, normal General Appearance: no apparent distress, alert, GCS 15, non-toxic Head: normocephalic, atraumatic Eyes: bilateral eye normal inspection, bilateral eye PERRL ENT: hearing grossly normal, normal pharynx, no angioedema, normal voice Neck: full range of motion, supple/symm/no masses Respiratory: chest non-tender, lungs clear, normal breath sounds, no rhonchi, speaking full sentences Cardiovascular #1: regular rate, rhythm, no edema Gastrointestinal: non tender, soft Rectal: deferred Musculoskeletal: back normal Neurologic: alert, motor strength/tone normal, oriented x3, sensory intact, responsive, speech normal Psychiatric: judgement/insight normal, memory normal, mood/affect normal, no suicidal/homicidal ideation Skin: no rash Lymphatic: no adenopathy Medical Decision Making PA Attestation All diagnoses and treatment plans were reviewed and discussed with my supervising physician Dr. Banks Diagnostic Impression: Primary Impression: Constipation ER Course 54-year-old female with history of hypertension currently controlled and being here several times for paresthesia with the most recent complete work-up with MRI that was done 1 week ago here complaining of continuous procedure as well as 5 days of constipation. Patient reports that she has been making bowel movement however with difficulty and denies any blood in stool. Denies use of narcotics at this time. Denies abdominal pain, nausea vomiting. Also complains of urinary frequency that has been ongoing for several months. Patient also reports that she has addressed her primary doctor. Appears to be coming here a lot for the symptoms. In no apparent distress. Afebrile and oxygenation within normal limits. Has not yet had a colonoscopy. Ddx considered but are not limited to: Colon cancer, constipation, diverticulitis, UTI, urinary frequency, urinary urgency Vital signs: are WNL, pt. is afebrile H&PE are most consistent with: Constipation ORDERS: UA, Colace ED INTERVENTIONS: None required at this time. DISCHARGE: At this time pt. is stable for d/c to home. Will provide printed patient care instructions, and any necessary prescriptions. Care plan and follow up instructions have been discussed with the patient prior to discharge. Patient to call primary doctor also requested colonoscopy, urine is clear and no infection noted. Follow with primary doctor in this regard. If worsening symptoms return also address chronic paresthesias primary doctor Last Vital Signs Date Time Temp Pulse Resp B/P (MAP) Pulse Ox O2 Delivery O2 Flow Rate FiO2 01/11/20 19:11 98.2 68 20 144/95 (111) 96 Room Air Disposition: HOME, SELF-CARE Condition: Stable Scripts Docusate Sodium* (COLACE*) 100 Mg Capsule 100 MG ORAL TWICE A DAY, #20 CAP Prov: Douglas Quiñones 01/11/20 Referrals: NON PHYSICIAN (PCP) Patient Instructions: Constipation, Adult Additional Instructions: Follow-up with primary doctor regarding chronic paresthesia as well as urinary frequency at this time you have no infection in your urine. Increase oral hydration as well as fiber intake, if worsening symptoms return to the emergency room also colonoscopy is needed as you are over the age of 50. To be requested by primary doctor. Douglas Quiñones January 11, 2020 19:53
[2020-01-11] MEDS ORDERED: COLACE100 MG ORAL (19:54)
[2020-01-11 19:57] VITALS: BP 144/95
--- NOTE | 2020-01-11 19:57 | NUR ---
ER DISCHARGE NOTE: Patient is cleared to be discharged per ERMD, pt is aox4, on room air, with stable vital signs. pt was given dc and prescription instructions, pt was able to verbalize understanding, pt id band removed without complications. pt is able to ambulate with steady gait. pt took all belongings.
== END 2020-01-11 19:57 | disposition home or self-care (01) ==
LOC: EMR 19:30
DX: K59.00 Constipation, unspecified (principal); I10 Essential (primary) hypertension
CPT/HCPCS: 81003; Z7502; 99282

== ENCOUNTER 2020-01-14 00:07 | Emergency (ER) | payer MEDICAID ==
[~2020-01-14] VITALS: Ht 162.6 cm; Wt 11.3 kg
--- NOTE | 2020-01-14 00:37 | NUR ---
ED Nurse Note: pt presents to ED c/o constipation x 1 week causing her to now have diffuse abd px over the entire abd. pt denies any vomiting but is nauseated, no urinary symptoms at this time. pt reports that she has had this happen in the past and had to have enemas done. pt states she has not taken anything at home for her symptoms.
[2020-01-14 00:39] VITALS: BP 161/92
--- NOTE | 2020-01-14 00:44 | Emergency Room Report ---
History of Present Illness General Chief Complaint: Abdominal Pain Source: Patient Present Illness HPI 54-year-old female presents the ED for abdominal pain. States that she has not had a bowel movement in several days. Has been seen here previously for constipation. Is currently waiting referral for GI. Was seen here 3 days ago and prescribed medication but states it is not helping. Notes nausea, denies vomiting. Denies fevers or chills. Denies chest pain. No other aggravating relieving factors. 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: No Patient History Past Medical History: HTN Past Surgical History: none Pertinent Family History: none Social History: Denies: smoking, alcohol use, drug use Now: No Immunizations: UTD Reviewed Nursing Documentation: PMH: Agreed; PSxH: Agreed Nursing Documentation-PMH Hx Cardiac Problems: No Hx Hypertension: Yes Hx Pacemaker: No Hx Asthma: No Hx COPD: No Hx Diabetes: No Hx Cancer: No Hx Gastrointestinal Problems: No Hx Dialysis: No Hx Neurological Problems: No Hx Cerebrovascular Accident: No Hx Seizures: No Review of Systems All Other Systems: negative except mentioned in HPI Physical Exam Vital Signs Date Time Temp Pulse Resp B/P (MAP) Pulse Ox O2 Delivery O2 Flow Rate FiO2 01/14/20 00:23 98.2 69 18 161/92 (115) 96 Room Air Sp02 EP Interpretation: reviewed, normal General Appearance: no apparent distress, alert, GCS 15, non-toxic, obese Head: normocephalic, atraumatic Eyes: bilateral eye normal inspection, bilateral eye PERRL ENT: hearing grossly normal, normal pharynx, no angioedema, normal voice Neck: full range of motion, supple/symm/no masses Respiratory: chest non-tender, lungs clear, normal breath sounds, speaking full sentences Cardiovascular #1: regular rate, rhythm, no edema Cardiovascular #2: 2+ carotid (R), 2+ carotid (L), 2+ radial (R), 2+ radial (L) , 2+ dorsalis pedis (R), 2+ dorsalis pedis (L) Gastrointestinal: normal bowel sounds, soft, non-distended, no guarding, no rebound, tenderness Rectal: deferred Genitourinary: normal inspection, no CVA tenderness Musculoskeletal: back normal, normal range of motion, gait/station normal, non- tender Neurologic: alert, motor strength/tone normal, oriented x3, sensory intact, responsive, speech normal Psychiatric: judgement/insight normal, memory normal, mood/affect normal, no suicidal/homicidal ideation Reflexes: 3+ bicep (R), 3+ bicep (L), 3+ tricep (R), 3+ tricep (L), 3+ knee (R) , 3+ knee (L) Skin: no rash Lymphatic: no adenopathy Medical Decision Making Diagnostic Impression: Primary Impression: Constipation Qualified Codes: K59.00 - Constipation, unspecified ER Course Hospital Course 54-year-old F presents to ED with abdominal pain, no BM for a ew days Differential diagnosis includes-appendicitis, cholecystitis, small bowel obstruction, gastritis, Clinical course Patient placed on stretcher. After initial history and physical I ordered labs , IV fluids, medications and CT scan Labs - no leukocytosis, electrolytes ok, LFTs normal CT scan shows no acute pathology, fecal impaction noted I discussed findings with patient. Resting comfortably. No vomiting. No signs of obstruction. Vitals stable. States she responded well to an enema and a medication that she drinks. Will prescribe enema and magnesium citrate. States she has a follow-up with GI next week. Safe for discharge with close outpatient follow-up I feel this is a highly complex case requiring extensive working including EKG/ Rhythm strip, Xray/CT/US, Blood/urine lab work, repeat exams while in ED, and administration of strong opiates/narcotics for pain control, admission to hospital or close patient follow up. Diagnosis - constipation Stable and discharged to home with Rx Mag Citrate, Fleet Enema. Followup with PMD/GI. Return to ED if symptoms recur or worsen Labs Test 01/14/20 00:45 01/14/20 01:10 White Blood Count 6.8 K/UL (4.8-10.8) Red Blood Count 4.73 M/UL (4.20-5.40) Hemoglobin 13.8 G/DL (12.0-16.0) Hematocrit 39.3 % (37.0-47.0) Mean Corpuscular Volume 83 FL (80-99) Mean Corpuscular Hemoglobin 29.2 PG (27.0-31.0) Mean Corpuscular Hemoglobin Concent 35.2 G/DL (32.0-36.0) Red Cell Distribution Width 11.3 % (11.6-14.8) Platelet Count 245 K/UL (150-450) Mean Platelet Volume 7.3 FL (6.5-10.1) Neutrophils (%) (Auto) 46.8 % (45.0-75.0) Lymphocytes (%) (Auto) 41.1 % (20.0-45.0) Monocytes (%) (Auto) 7.8 % (1.0-10.0) Eosinophils (%) (Auto) 2.9 % (0.0-3.0) Basophils (%) (Auto) 1.4 % (0.0-2.0) Sodium Level 141 MMOL/L (136-145) Potassium Level 3.4 MMOL/L (3.5-5.1) Chloride Level 104 MMOL/L (98-107) Carbon Dioxide Level 27 MMOL/L (21-32) Anion Gap 10 mmol/L (5-15) Blood Urea Nitrogen 13 mg/dL (7-18) Creatinine 0.9 MG/DL (0.55-1.30) Estimat Glomerular Filtration Rate > 60 mL/min (>60) Glucose Level 106 MG/DL (74-106) Calcium Level 9.3 MG/DL (8.5-10.1) Total Bilirubin 0.5 MG/DL (0.2-1.0) Aspartate Amino Transf (AST/SGOT) 18 U/L (15-37) Alanine Aminotransferase (ALT/SGPT) 34 U/L (12-78) Alkaline Phosphatase 47 U/L (46-116) Total Protein 7.9 G/DL (6.4-8.2) Albumin 3.8 G/DL (3.4-5.0) Globulin 4.1 g/dL Albumin/Globulin Ratio 0.9 (1.0-2.7) Lipase 99 U/L (73-393) Urine Color Pale yellow Urine Appearance Clear Urine pH 6 (4.5-8.0) Urine Specific [place] 1.010 (1.005-1.035) Urine Protein Negative (NEGATIVE) Urine Glucose (UA) Negative (NEGATIVE) Urine Ketones Negative (NEGATIVE) Urine Blood Negative (NEGATIVE) Urine Nitrite Negative (NEGATIVE) Urine Bilirubin Negative (NEGATIVE) Urine Urobilinogen Normal MG/DL (0.0-1.0) Urine Leukocyte Esterase Negative (NEGATIVE) CT/MRI/US Diagnostic Results CT/MRI/US Diagnostic Results : Imaging Test Ordered: CT A/P Impression COMPARISON: CT abdomen/pelvis 08/25/16 FINDINGS: Lung bases: Unremarkable. No mass. No consolidation. Mediastinum: Small sliding hiatus hernia. ABDOMEN: Liver: Small focal fatty infiltration adjacent to the falciform ligament. Gallbladder and bile ducts: Contracted gallbladder without common bile duct dilation. Pancreas: Unremarkable. No ductal dilatation, focal mass, or peripancreatic inflammatory stranding. Spleen: Unremarkable. No splenomegaly. Adrenals: Unremarkable. No mass. Kidneys and ureters: 6 mm left upper pole renal cyst, no followup necessary. Stomach and bowel: No small bowel obstruction. Under distention limits evaluation for small bowel wall thickening/enteritis. Colonic diverticulosis without colitis/diverticulitis. PELVIS: Appendix: Normal appendix. Bladder: Trace urinary bladder gas may be secondary to instrumentation or mild emphysematous cystitis. Reproductive: Prior hysterectomy. ABDOMEN and PELVIS: Intraperitoneal space: Unremarkable. No free air. No significant fluid collection. Bones/joints: Multilevel lumbar degenerative disc disease. Lower lumbar foraminal stenosis is present. Soft tissues: Unremarkable. Vasculature: Unremarkable. No abdominal aortic aneurysm. Lymph nodes: Unremarkable. No enlarged lymph nodes. IMPRESSION: 1. Trace urinary bladder gas may be secondary to recent instrumentation or mild emphysematous cystitis. Correlate clinically. 2. Diverticulosis without diverticulitis. 3. No free fluid, free air, small bowel obstruction, acute appendicitis, hydroureteronephrosis, or biliary ductal dilatation. Last Vital Signs Date Time Temp Pulse Resp B/P (MAP) Pulse Ox O2 Delivery O2 Flow Rate FiO2 01/14/20 00:39 69 18 Room Air 01/14/20 00:39 161/92 96 01/14/20 00:23 98.2 Status: improved Disposition: HOME, SELF-CARE Condition: Stable Scripts Na Phos,M-B/Na Phos,Di-Ba* (FLEET ENEMA*) 133 Ml Enema 133 ML RECTAL DAILY, #133 ML 0 Refills Prov: Donnell Marie MD 01/14/20 Magnesium Citrate (CITRATE OF MAGNESIA) 296 Ml Solution 150 ML PO DAILY for 2 Days, #296 ML Prov: Donnell Marie MD 01/14/20 [facility],REFERR[facility] (PCP) Donnell Marie MD January 14, 2020 00:44
[2020-01-14] MEDS ORDERED: Omnipaque-300 100ml vial INJ PRN (00:45)
[2020-01-14] MEDS ORDERED: Dicyclomine HCl 10mg/5ml oral soln ORAL ONE (00:45)
[2020-01-14] MEDS ORDERED: Mylanta II UD 30ml ORAL ONE (00:45)
[2020-01-14] MEDS ORDERED: Lidocaine 2% Visc 15ml soln ORAL ONE (00:45)
--- NOTE | 2020-01-14 00:45 | NUR ---
ED Nurse Note: pt refusing PO meds and IV famotidine. pt was educated on risks/benefits of refusing meds, she verablized understanding of teachings, still refusing meds but okay with IV fluids running
[2020-01-14 01:03] LABS: BASOPHILS % (AUTO) 1.4 % (0.0-2.0); EOSINOPHILS % (AUTO) 2.9 % (0.0-3.0); HEMATOCRIT 39.3 % (37.0-47.0); HEMOGLOBIN 13.8 G/DL (12.0-16.0); LYMPHOCYTES % (AUTO) 41.1 % (20.0-45.0); MEAN CORPUSCULAR VOLUME 83 FL (80-99); MONOCYTES % (AUTO) 7.8 % (1.0-10.0); NEUTROPHILS % (AUTO) 46.8 % (45.0-75.0); PLATELET COUNT 245 K/UL (150-450); RED BLOOD COUNT 4.73 M/UL (4.20-5.40); RED CELL DISTRIBUTION WIDTH 11.3 % (11.6-14.8); WHITE BLOOD COUNT 6.8 K/UL (4.8-10.8)
[2020-01-14 01:16] LABS: APPEARANCE,URINE CLEAR; BILIRUBIN, URINE NEGATIVE (NEGATIVE); COLOR,URINE PALE YELLOW; GLUCOSE, URINE (UA) NEGATIVE (NEGATIVE); KETONES,URINE NEGATIVE (NEGATIVE); LEUKOCYTE ESTERASE ,URINE NEGATIVE (NEGATIVE); NITRITE,URINE NEGATIVE (NEGATIVE); PH,URINE 6 (4.5-8.0); PROTEIN,URINE NEGATIVE (NEGATIVE); UROBILINOGEN,URINE NORMAL MG/DL (0.0-1.0)
[2020-01-14 01:21] LABS: ANION GAP 10 mmol/L (5-15); BLOOD UREA NITROGEN 13 mg/dL (7-18); CALCIUM 9.3 MG/DL (8.5-10.1); CARBON DIOXIDE 27 MMOL/L (21-32); CHLORIDE 104 MMOL/L (98-107); CREATININE 0.9 MG/DL (0.55-1.30); POTASSIUM 3.4 MMOL/L (3.5-5.1); SODIUM 141 MMOL/L (136-145)
[2020-01-14 01:26] LABS: ALANINE AMINOTRANSFERASE 34 U/L (12-78); ALBUMIN 3.8 G/DL (3.4-5.0); ALBUMIN/GLOBULIN RATIO 0.9 (1.0-2.7); ALKALINE PHOSPHATASE 47 U/L (46-116); ASPARTATE AMINO TRANSFERASE 18 U/L (15-37); BILIRUBIN,TOTAL 0.5 MG/DL (0.2-1.0)
--- NOTE | 2020-01-14 01:44 | NUR ---
ED Nurse Note: pt taken to CT via wheelchair in no acute distress. all bloodwork and urine has been sent to lab, IV contrast obtained Addendum: 01/14/20 at 0145 by ELEN IV contrast consent has been obtained
--- NOTE | 2020-01-14 01:57 | NUR ---
ED Nurse Note: pt returned from CT in stable condition. able to ambulate to restroom with steady gait
--- NOTE | 2020-01-14 02:19 | Diagnostic Imaging Report ---
EXAM: CT Abdomen and Pelvis With Intravenous Contrast CLINICAL HISTORY: Abdominal pain TECHNIQUE: Axial computed tomography images of the abdomen and pelvis with intravenous contrast. CTDI is 22 mGy and DLP is 1172.6 mGy-cm. One or more of the following dose reduction techniques were used: automated exposure control, adjustment of the mA and/or kV according to patient size, use of iterative reconstruction technique. Coronal and sagittal reformatted images were created and reviewed. CONTRAST: 99 cc Omnipaque 300 COMPARISON: CT abdomen/pelvis 08/25/16 FINDINGS: Lung bases: Unremarkable. No mass. No consolidation. Mediastinum: Small sliding hiatus hernia. ABDOMEN: Liver: Small focal fatty infiltration adjacent to the falciform ligament. Gallbladder and bile ducts: Contracted gallbladder without common bile duct dilation. Pancreas: Unremarkable. No ductal dilatation, focal mass, or peripancreatic inflammatory stranding. Spleen: Unremarkable. No splenomegaly. Adrenals: Unremarkable. No mass. Kidneys and ureters: 6 mm left upper pole renal cyst, no followup necessary. Stomach and bowel: No small bowel obstruction. Under distention limits evaluation for small bowel wall thickening/enteritis. Colonic diverticulosis without colitis/diverticulitis. PELVIS: Appendix: Normal appendix. Bladder: Trace urinary bladder gas may be secondary to instrumentation or mild emphysematous cystitis. Reproductive: Prior hysterectomy. ABDOMEN and PELVIS: Intraperitoneal space: Unremarkable. No free air. No significant fluid collection. Bones/joints: Multilevel lumbar degenerative disc disease. Lower lumbar foraminal stenosis is present. Soft tissues: Unremarkable. Vasculature: Unremarkable. No abdominal aortic aneurysm. Lymph nodes: Unremarkable. No enlarged lymph nodes. IMPRESSION: 1. Trace urinary bladder gas may be secondary to recent instrumentation or mild emphysematous cystitis. Correlate clinically. 2. Diverticulosis without diverticulitis. 3. No free fluid, free air, small bowel obstruction, acute appendicitis, hydroureteronephrosis, or biliary ductal dilatation.
[2020-01-14] MEDS ORDERED: CITRATE OF MAG296 ML PO (02:46)
[2020-01-14] MEDS ORDERED: FLEET ENEMA133 ML RECTAL (02:46)
[2020-01-14 02:52] VITALS: BP 161/92
== END 2020-01-14 02:52 | disposition home or self-care (01) ==
LOC: EMR 00:41
DX: K59.00 Constipation, unspecified (principal); I10 Essential (primary) hypertension; E66.9 Obesity, unspecified; K57.90 Diverticulosis of intestine, part unspecified, without perforation or abscess without bleeding; M51.36 Other intervertebral disc degeneration, lumbar region; Z90.710 Acquired absence of both cervix and uterus; N28.1 Cyst of kidney, acquired
CPT/HCPCS: 36415; 74177; 80053; 81003; 83690; 85025; J7040; Q9967; Z7502; 99284

== ENCOUNTER 2020-01-24 07:01 | Emergency (ER) | payer MEDICAID, OTHER ==
[~2020-01-24] VITALS: Ht 162.6 cm; Wt 110.7 kg
[~2020-01-24 07:01] MED LIST changes: +CITRATE OF MAG296 ML PO
--- NOTE | 2020-01-24 07:20 | NUR ---
ED Nurse Note: pt walked in to ER from home due to "feeling like being dehydrated." pt aao x4 and ambulatory. no cardiac or pulmonary distress noted at this time. pt was able to provide urine sample. pale and clear urine noted. accu check 127 reported to ERMD. per pt, she is prediabetic.
--- NOTE | 2020-01-24 07:42 | NUR ---
ED Nurse Note: urine and blood sent to lab.
[2020-01-24 07:43] VITALS: BP 122/68
[2020-01-24 07:51] LABS: APPEARANCE,URINE CLEAR; BILIRUBIN, URINE NEGATIVE (NEGATIVE); COLOR,URINE PALE YELLOW; GLUCOSE, URINE (UA) NEGATIVE (NEGATIVE); KETONES,URINE NEGATIVE (NEGATIVE); LEUKOCYTE ESTERASE ,URINE NEGATIVE (NEGATIVE); NITRITE,URINE NEGATIVE (NEGATIVE); PH,URINE 7 (4.5-8.0); PROTEIN,URINE NEGATIVE (NEGATIVE); UROBILINOGEN,URINE NORMAL MG/DL (0.0-1.0)
[2020-01-24 07:53] LABS: BASOPHILS % (AUTO) 1.2 % (0.0-2.0); EOSINOPHILS % (AUTO) 1.7 % (0.0-3.0); HEMATOCRIT 38.8 % (37.0-47.0); HEMOGLOBIN 13.8 G/DL (12.0-16.0); LYMPHOCYTES % (AUTO) 28.9 % (20.0-45.0); MEAN CORPUSCULAR VOLUME 82 FL (80-99); NEUTROPHILS % (AUTO) 62.2 % (45.0-75.0); PLATELET COUNT 230 K/UL (150-450); RED BLOOD COUNT 4.75 M/UL (4.20-5.40); RED CELL DISTRIBUTION WIDTH 10.9 % (11.6-14.8)
[2020-01-24 08:01] LABS: ANION GAP 8 mmol/L (5-15); BLOOD UREA NITROGEN 13 mg/dL (7-18); CALCIUM 9.2 MG/DL (8.5-10.1); CARBON DIOXIDE 28 MMOL/L (21-32); CHLORIDE 105 MMOL/L (98-107); CREATININE 0.9 MG/DL (0.55-1.30); POTASSIUM 3.9 MMOL/L (3.5-5.1); SODIUM 141 MMOL/L (136-145)
[2020-01-24 08:05] LABS: ALANINE AMINOTRANSFERASE 33 U/L (12-78); ALBUMIN 3.7 G/DL (3.4-5.0); ALBUMIN/GLOBULIN RATIO 0.9 (1.0-2.7); ALKALINE PHOSPHATASE 45 U/L (46-116); ASPARTATE AMINO TRANSFERASE 18 U/L (15-37); BILIRUBIN,TOTAL 0.6 MG/DL (0.2-1.0)
[2020-01-24 08:52] VITALS: BP 126/82
--- NOTE | 2020-01-24 08:53 | NUR ---
ED Nurse Note: Pt cleared by health care Provider for discharge. DC instructions was given and explained to pt and verbalized understanding of teachings. All medical deviecs such as ID band removed. Pt is AAO x4, ambulatory and left with all personal belongings.
--- NOTE | 2020-01-24 09:02 | Emergency Room Report ---
History of Present Illness General Chief Complaint: General Complaint Source: Patient Present Illness HPI 54-year-old female presents the ED for evaluation. Stating that she feels dehydrated. States she has been urinating quite a bit. States she checked her sugar at home and it was within normal limits. Denies fevers or chills. Denies chest pain. Denies nausea or vomiting. States she feels tingling sensations throughout her body. No other aggravating relieving factors. Denies any other associated symptoms Allergies: Coded Allergies: No Known Allergies (Unverified , 12/23/12) COVID-19 Screening Contact w/high risk pt: No Recent Travel to affected area: No Experienced COVID-19 symptoms?: No COVID-19 Testing performed PAST DUE ACCOUNTS CLERK: No Patient History Past Medical History: HTN, asthma, GERD Past Surgical History: none Pertinent Family History: none Social History: Denies: smoking, alcohol use, drug use Last Menstrual Period: hysterectomy in more than 10 years ago. Now: No Immunizations: UTD Reviewed Nursing Documentation: PMH: Agreed; PSxH: Agreed Nursing Documentation-PMH Past Medical History: No History, Except For Hx Cardiac Problems: No - hysterectomy Hx Hypertension: Yes Hx Pacemaker: No Hx Asthma: Yes Hx COPD: No Hx Diabetes: No - borderline DM Hx Cancer: No Hx Gastrointestinal Problems: No Hx Dialysis: No Hx Neurological Problems: No Hx Cerebrovascular Accident: No Hx Seizures: No Review of Systems All Other Systems: negative except mentioned in HPI Physical Exam Vital Signs Date Time Temp Pulse Resp B/P (MAP) Pulse Ox O2 Delivery O2 Flow Rate FiO2 01/23/20 07:09 98.1 86 19 122/68 (86) 95 Room Air Sp02 EP Interpretation: reviewed, normal General Appearance: no apparent distress, alert, GCS 15, non-toxic Head: normocephalic, atraumatic Eyes: bilateral eye normal inspection, bilateral eye PERRL ENT: hearing grossly normal, normal pharynx, no angioedema, normal voice Neck: full range of motion, supple/symm/no masses Respiratory: chest non-tender, lungs clear, normal breath sounds, speaking full sentences Cardiovascular #1: regular rate, rhythm, no edema Cardiovascular #2: 2+ carotid (R), 2+ carotid (L), 2+ radial (R), 2+ radial (L) , 2+ dorsalis pedis (R), 2+ dorsalis pedis (L) Gastrointestinal: normal bowel sounds, non tender, soft, non-distended, no guarding, no rebound Rectal: deferred Genitourinary: normal inspection, no CVA tenderness Musculoskeletal: back normal, normal range of motion, gait/station normal, non- tender Neurologic: alert, motor strength/tone normal, oriented x3, sensory intact, responsive, speech normal Psychiatric: judgement/insight normal, memory normal, mood/affect normal, no suicidal/homicidal ideation Reflexes: 3+ bicep (R), 3+ bicep (L), 3+ tricep (R), 3+ tricep (L), 3+ knee (R) , 3+ knee (L) Skin: no rash Lymphatic: no adenopathy Medical Decision Making Diagnostic Impression: Primary Impression: Paresthesias Additional Impression: Dehydration ER Course Hospital Course 54-year-old female presents ED complaining of feeling dehydrated, frequent urination, tingling sensations through body differential diagnosis: UTI, dehydration, anemia Clinical course Patient placed on stretcher. On loop tacker. After initial history and physical I ordered labs, IV fluids Labs - no leukocytosis, electrolytes ok, LFTs normal, UA unremarkable I reviewed EMR. Patient has been here multiple times for similar vague presentations. Has presented multiple times with a paresthesia of some kind. Patient has no focal deficits. Cranial nerves II through XII intact. I discussed findings with patient. Patient feels better after IV hydration. Safe for discharge for close outpatient follow-up. States she has a PMD I feel this is a highly complex case requiring extensive working including EKG/ Rhythm strip, Xray/CT/US, Blood/urine lab work, repeat exams while in ED, and administration of strong opiates/narcotics for pain control, admission to hospital or close patient follow up. Diagnosis - parastheasis, dehydration Stable and discharged to home. Followup with PMD. Return to ED if symptoms recur or worsen Labs Test 01/24/20 07:30 White Blood Count 5.0 K/UL (4.8-10.8) Red Blood Count 4.75 M/UL (4.20-5.40) Hemoglobin 13.8 G/DL (12.0-16.0) Hematocrit 38.8 % (37.0-47.0) Mean Corpuscular Volume 82 FL (80-99) Mean Corpuscular Hemoglobin 28.9 PG (27.0-31.0) Mean Corpuscular Hemoglobin Concent 35.5 G/DL (32.0-36.0) Red Cell Distribution Width 10.9 % (11.6-14.8) Platelet Count 230 K/UL (150-450) Mean Platelet Volume 8.1 FL (6.5-10.1) Neutrophils (%) (Auto) 62.2 % (45.0-75.0) Lymphocytes (%) (Auto) 28.9 % (20.0-45.0) Monocytes (%) (Auto) 6.0 % (1.0-10.0) Eosinophils (%) (Auto) 1.7 % (0.0-3.0) Basophils (%) (Auto) 1.2 % (0.0-2.0) Urine Color Pale yellow Urine Appearance Clear Urine pH 7 (4.5-8.0) Urine Specific [place] 1.005 (1.005-1.035) Urine Protein Negative (NEGATIVE) Urine Glucose (UA) Negative (NEGATIVE) Urine Ketones Negative (NEGATIVE) Urine Blood Negative (NEGATIVE) Urine Nitrite Negative (NEGATIVE) Urine Bilirubin Negative (NEGATIVE) Urine Urobilinogen Normal MG/DL (0.0-1.0) Urine Leukocyte Esterase Negative (NEGATIVE) Sodium Level 141 MMOL/L (136-145) Potassium Level 3.9 MMOL/L (3.5-5.1) Chloride Level 105 MMOL/L (98-107) Carbon Dioxide Level 28 MMOL/L (21-32) Anion Gap 8 mmol/L (5-15) Blood Urea Nitrogen 13 mg/dL (7-18) Creatinine 0.9 MG/DL (0.55-1.30) Estimat Glomerular Filtration Rate > 60 mL/min (>60) Glucose Level 139 MG/DL (74-106) Calcium Level 9.2 MG/DL (8.5-10.1) Total Bilirubin 0.6 MG/DL (0.2-1.0) Aspartate Amino Transf (AST/SGOT) 18 U/L (15-37) Alanine Aminotransferase (ALT/SGPT) 33 U/L (12-78) Alkaline Phosphatase 45 U/L (46-116) Total Protein 7.8 G/DL (6.4-8.2) Albumin 3.7 G/DL (3.4-5.0) Globulin 4.1 g/dL Albumin/Globulin Ratio 0.9 (1.0-2.7) Lipase 85 U/L (73-393) Last Vital Signs Date Time Temp Pulse Resp B/P (MAP) Pulse Ox O2 Delivery O2 Flow Rate FiO2 01/24/20 08:52 97.7 19 126/82 100 Room Air 01/24/20 07:43 86 Status: improved Disposition: HOME, SELF-CARE Condition: Stable Referrals: NON PHYSICIAN (PCP) Patient Instructions: Dehydration, Adult, [id number] Donnell Marie MD January 24, 2020 09:02
== END 2020-01-24 08:53 | disposition home or self-care (01) ==
LOC: EMR 07:28
DX: R20.2 Paresthesia of skin (principal); E86.0 Dehydration; I10 Essential (primary) hypertension; K21.9 Gastro-esophageal reflux disease without esophagitis; Z90.710 Acquired absence of both cervix and uterus; R35.0 Frequency of micturition
CPT/HCPCS: 36415; 80053; 81003; 82962; 83690; 85025; 96360; 99284; J7030

== ENCOUNTER 2020-02-15 16:02 | Emergency (ER) | payer MEDICAID, OTHER ==
[~2020-02-15] VITALS: Ht 162.6 cm; Wt 108.0 kg
--- NOTE | 2020-02-15 16:28 | Emergency Room Report ---
History of Present Illness General Chief Complaint: General Complaint Source: Patient Present Illness HPI Patient is a 54-year-old female who presents after increased lower extremity cramping. Recently had taken a colon cleanse. Subsequently began having cramping to lower extremities. Previous history of hypertension. Denies any shortness of breath or chest discomfort. Patient had not been having any leg pain or swelling. Previous history of hypertension and she had recently taken Norvasc. Reports having multiple episodes of bowel movements after taking this cleanse pill. Allergies: Coded Allergies: No Known Allergies (Unverified , 12/23/12) COVID-19 Screening Contact w/high risk pt: No Recent Travel to affected area: No Experienced COVID-19 symptoms?: No COVID-19 Testing performed FLUME RIDE OPERATOR: No Patient History Past Medical History: see triage record Last Menstrual Period: na Now: No Reviewed Nursing Documentation: PMH: Agreed; PSxH: Agreed Nursing Documentation-PMH Past Medical History: No History, Except For Hx Cardiac Problems: No - hysterectomy Hx Hypertension: Yes Hx Pacemaker: No Hx Asthma: Yes Hx COPD: No Hx Diabetes: No - borderline DM Hx Cancer: No Hx Gastrointestinal Problems: No Hx Dialysis: No Hx Neurological Problems: No Hx Cerebrovascular Accident: No Hx Seizures: No Review of Systems All Other Systems: negative except mentioned in HPI Physical Exam Vital Signs Date Time Temp Pulse Resp B/P (MAP) Pulse Ox O2 Delivery O2 Flow Rate FiO2 02/15/20 16:12 98.2 92 16 182/97 (125) 97 Room Air Sp02 EP Interpretation: reviewed, normal General Appearance: normal inspection, well appearing, no apparent distress, alert, GCS 15, non-toxic Head: atraumatic ENT: normal ENT inspection, hearing grossly normal, normal voice Neck: normal inspection, full range of motion, supple, no bony tend Respiratory: normal inspection, lungs clear, normal breath sounds, no respiratory distress, no retraction, no wheezing Cardiovascular #1: regular rate, rhythm, no edema Gastrointestinal: normal inspection, normal bowel sounds, non tender, soft, no guarding, no hernia Genitourinary: no CVA tenderness Musculoskeletal: normal inspection, back normal, normal range of motion Neurologic: alert, motor strength/tone normal, medical social worker III-XII nml as tested, oriented x3, responsive, speech normal, normal inspection Psychiatric: normal inspection, judgement/insight normal, mood/affect normal Skin: no rash Medical Decision Making Diagnostic Impression: Primary Impression: Muscle cramps Additional Impression: Dehydration ER Course Presented for bilateral lower extremity cramps. Differential diagnosis include was not limited to dehydration, electrolyte abnormality, paresthesia among others. Because of complexity of patient's case laboratory tests and imaging studies were ordered. Patient had similar symptoms in the past and was noted to have some prior history of hypertension. She has a normal neurologic exam. Pulses are present both lower extremities which have good perfusion. Laboratory testing was ordered due to patient's cramping to evaluate for possible electrolyte abnormality.Laboratory testing showed mild hypokalemia. Patient was given oral potassium. She was also given some IV fluids. As she had been using the bathroom multiple times patient was given prescription for dicyclomine. Patient was advised to follow-up with her primary care physician for recheck. She was advised to return if any worsening condition or other concerns. The patient is advised to follow up with primary care doctor in 1-2 days. Patient is advised to return if any worsening condition or if any changes in status that are concerning. This report is dictated with every[employer] clinic office coordinator software which may occasionally lead to discrepancies related to use of this software. Labs Test 02/15/20 16:30 White Blood Count 6.3 K/UL (4.8-10.8) Red Blood Count 4.74 M/UL (4.20-5.40) Hemoglobin 13.5 G/DL (12.0-16.0) Hematocrit 42.4 % (37.0-47.0) Mean Corpuscular Volume 90 FL (80-99) Mean Corpuscular Hemoglobin 28.4 PG (27.0-31.0) Mean Corpuscular Hemoglobin Concent 31.7 G/DL (32.0-36.0) Red Cell Distribution Width 12.7 % (11.6-14.8) Platelet Count 236 K/UL (150-450) Mean Platelet Volume 9.4 FL (6.5-10.1) Neutrophils (%) (Auto) 58.4 % (45.0-75.0) Lymphocytes (%) (Auto) 31.7 % (20.0-45.0) Monocytes (%) (Auto) 7.2 % (1.0-10.0) Eosinophils (%) (Auto) 1.0 % (0.0-3.0) Basophils (%) (Auto) 1.6 % (0.0-2.0) Sodium Level 139 MMOL/L (136-145) Potassium Level 3.4 MMOL/L (3.5-5.1) Chloride Level 104 MMOL/L (98-107) Carbon Dioxide Level 25 MMOL/L (21-32) Anion Gap 10 mmol/L (5-15) Blood Urea Nitrogen 11 mg/dL (7-18) Creatinine 1.0 MG/DL (0.55-1.30) Estimat Glomerular Filtration Rate > 60 mL/min (>60) Glucose Level 98 MG/DL (74-106) Calcium Level 9.1 MG/DL (8.5-10.1) Total Bilirubin 0.7 MG/DL (0.2-1.0) Aspartate Amino Transf (AST/SGOT) 17 U/L (15-37) Alanine Aminotransferase (ALT/SGPT) 32 U/L (12-78) Alkaline Phosphatase 46 U/L (46-116) Total Protein 8.0 G/DL (6.4-8.2) Albumin 3.8 G/DL (3.4-5.0) Globulin 4.2 g/dL Albumin/Globulin Ratio 0.9 (1.0-2.7) Last Vital Signs Date Time Temp Pulse Resp B/P (MAP) Pulse Ox O2 Delivery O2 Flow Rate FiO2 02/15/20 16:12 98.2 92 16 182/97 (125) 97 Room Air Status: improved Disposition: HOME, SELF-CARE Condition: Stable Scripts Dicyclomine Hcl* (DICYCLOMINE HCL*) 10 Mg Capsule 10 MG ORAL QID, #20 CAP Prov: Coleman Cristobal MD 02/15/20 Coleman Cristobal MD Feb 15, 2020 16:28
[2020-02-15 16:47] LABS: BASOPHILS % (AUTO) 1.6 % (0.0-2.0); HEMATOCRIT 42.4 % (37.0-47.0); HEMOGLOBIN 13.5 G/DL (12.0-16.0); LYMPHOCYTES % (AUTO) 31.7 % (20.0-45.0); MEAN CORPUSCULAR VOLUME 90 FL (80-99); MONOCYTES % (AUTO) 7.2 % (1.0-10.0); NEUTROPHILS % (AUTO) 58.4 % (45.0-75.0); PLATELET COUNT 236 K/UL (150-450); RED BLOOD COUNT 4.74 M/UL (4.20-5.40); RED CELL DISTRIBUTION WIDTH 12.7 % (11.6-14.8); WHITE BLOOD COUNT 6.3 K/UL (4.8-10.8)
[2020-02-15 16:54] LABS: ANION GAP 10 mmol/L (5-15); BLOOD UREA NITROGEN 11 mg/dL (7-18); CALCIUM 9.1 MG/DL (8.5-10.1); CARBON DIOXIDE 25 MMOL/L (21-32); CHLORIDE 104 MMOL/L (98-107); POTASSIUM 3.4 MMOL/L (3.5-5.1); SODIUM 139 MMOL/L (136-145)
[2020-02-15 16:59] LABS: ALANINE AMINOTRANSFERASE 32 U/L (12-78); ALBUMIN 3.8 G/DL (3.4-5.0); ALBUMIN/GLOBULIN RATIO 0.9 (1.0-2.7); ALKALINE PHOSPHATASE 46 U/L (46-116); ASPARTATE AMINO TRANSFERASE 17 U/L (15-37); BILIRUBIN,TOTAL 0.7 MG/DL (0.2-1.0)
[2020-02-15] MEDS ORDERED: DICYCLOMINE HCL10 MG ORAL (17:15)
[2020-02-15 17:35] VITALS: BP 167/89
== END 2020-02-15 17:37 | disposition home or self-care (01) ==
LOC: EMR 16:30
DX: R25.2 Cramp and spasm (principal); E86.0 Dehydration; Z90.710 Acquired absence of both cervix and uterus; I10 Essential (primary) hypertension
CPT/HCPCS: 36415; 80053; 85025; J7040; Z7502; 99284; J8499

== ENCOUNTER 2020-02-23 01:16 | Emergency (ER) | payer MEDICAID ==
[~2020-02-23] VITALS: Ht 162.6 cm; Wt 107.0 kg
[~2020-02-23 01:16] MED LIST changes: +DICYCLOMINE HCL10 MG ORAL
[2020-02-23 01:41] VITALS: BP 150/95
--- NOTE | 2020-02-23 01:51 | Emergency Room Report ---
History of Present Illness General Chief Complaint: General Complaint Source: Patient Present Illness HPI Patient took a colon cleanser earlier in order to prepare for colonoscopy. She feels dehydrated at this time. Her blood pressure was up. She took her blood pressure medicine and this is better. She could not sleep. Is complaining about burning sensation along her shoulders and also her left leg. She denies chest pain or shortness of breath. No fevers or chills. She feels anxious. The patient has been seen in the past for the dehydration and also hypokalemia. When these have happened in the past she has had similar complaints of tingling and weakness. She does have potassium team at home. She is not been taking potassium tablets recently. No sore throat, chest pain, palpitations, nausea, vomiting, abdominal pain, shortness of breath, joint pain, rashes, depression, anxiety, visual changes, headache. The patient has not complaining of dysuria however she does complain about a vaginal discharge which she thinks might be yeast. Allergies: Coded Allergies: No Known Allergies (Unverified , 12/23/12) COVID-19 Screening Contact w/high risk pt: No Recent Travel to affected area: No Experienced COVID-19 symptoms?: No COVID-19 Testing performed ASE MASTER MECHANIC: No Patient History Past Medical History: see triage record Past Surgical History: hysterectomy Social History: Denies: smoking Social History Narrative Patient drove herself here. Now: No Reviewed Nursing Documentation: PMH: Agreed; PSxH: Agreed Nursing Documentation-PMH Hx Cardiac Problems: No - hysterectomy Hx Hypertension: Yes Hx Pacemaker: No Hx Asthma: Yes Hx COPD: No Hx Diabetes: No - borderline DM Hx Cancer: No Hx Gastrointestinal Problems: No Hx Dialysis: No Hx Neurological Problems: No Hx Cerebrovascular Accident: No Hx Seizures: No Review of Systems All Other Systems: negative except mentioned in HPI Physical Exam Vital Signs Date Time Temp Pulse Resp B/P (MAP) Pulse Ox O2 Delivery O2 Flow Rate FiO2 02/23/20 01:31 97.3 69 18 150/95 (113) 96 Room Air Sp02 EP Interpretation: reviewed, normal General Appearance: well appearing, no apparent distress, GCS 15 Head: normocephalic Eyes: bilateral eye normal inspection, bilateral eye PERRL, bilateral eye EOMI ENT: moist mucus membranes Neck: supple Respiratory: lungs clear, normal breath sounds Cardiovascular #1: regular rate, rhythm Cardiovascular #2: 2+ radial (R) Gastrointestinal: normal inspection, normal bowel sounds, non tender, no mass, non-distended, overweight Genitourinary: no CVA tenderness Musculoskeletal: back normal, normal range of motion, gait/station normal Neurologic: alert, oriented x3, normal inspection Psychiatric: anxious Skin: no rash, warm/dry Medical Decision Making Diagnostic Impression: Primary Impression: Dehydration Additional Impressions: Hypokalemia Monilia infection ER Course Patient with adverse reaction to taking colon cleanser with feeling dehydrated. Differential includes electrolyte abnormality, anxiety, paresthesias amongst others. Evaluation with EKG, and labs. Treatment with IV hydration and may need to replace other electrolytes. Labs significant for low potassium. Otherwise unremarkable. Discussed pyuria with patient. She denies dysuria and feels this is more related to with discharge. Potassium ordered and infused as she needs to maintain n.p.o. status. Patient symptoms resolved completely. Discussed treatment plan with patient and to follow-up with colonoscopy today with copies of her labs. Patient stable for outpatient observation and treatment. Laboratory Tests Test 02/23/20 01:55 White Blood Count 4.9 K/UL (4.8-10.8) Red Blood Count 4.87 M/UL (4.20-5.40) Hemoglobin 13.9 G/DL (12.0-16.0) Hematocrit 43.1 % (37.0-47.0) Mean Corpuscular Volume 88 FL (80-99) Mean Corpuscular Hemoglobin 28.5 PG (27.0-31.0) Mean Corpuscular Hemoglobin Concent 32.3 G/DL (32.0-36.0) Red Cell Distribution Width 11.8 % (11.6-14.8) Platelet Count 223 K/UL (150-450) Mean Platelet Volume 8.7 FL (6.5-10.1) Neutrophils (%) (Auto) 42.1 % (45.0-75.0) L Lymphocytes (%) (Auto) 46.4 % (20.0-45.0) H Monocytes (%) (Auto) 7.3 % (1.0-10.0) Eosinophils (%) (Auto) 2.0 % (0.0-3.0) Basophils (%) (Auto) 2.2 % (0.0-2.0) H Urine Color Pale yellow Urine Appearance Clear Urine pH 6.5 (4.5-8.0) Urine Specific [place] 1.005 (1.005-1.035) Urine Protein Negative (NEGATIVE) Urine Glucose (UA) Negative (NEGATIVE) Urine Ketones Negative (NEGATIVE) Urine Blood 1+ (NEGATIVE) H Urine Nitrite Negative (NEGATIVE) Urine Bilirubin Negative (NEGATIVE) Urine Urobilinogen Normal MG/DL (0.0-1.0) Urine Leukocyte Esterase 2+ (NEGATIVE) H Urine RBC 0-2 /HPF (0 - 2) Urine WBC 10-15 /HPF (0 - 2) H Urine Squamous Epithelial Cells Few /LPF (NONE/OCC) Urine Bacteria Few /HPF (NONE) Sodium Level 138 MMOL/L (136-145) Potassium Level 3.3 MMOL/L (3.5-5.1) L Chloride Level 101 MMOL/L (98-107) Carbon Dioxide Level 27 MMOL/L (21-32) Anion Gap 10 mmol/L (5-15) Blood Urea Nitrogen 10 mg/dL (7-18) Creatinine 0.8 MG/DL (0.55-1.30) Estimated Glomerular Filtration Rate > 60 mL/min (>60) Glucose Level 98 MG/DL (74-106) Calcium Level 9.3 MG/DL (8.5-10.1) Magnesium Level 2.0 MG/DL (1.8-2.4) Total Bilirubin 0.9 MG/DL (0.2-1.0) Aspartate Amino Transferase (AST) 19 U/L (15-37) Alanine Aminotransferase (ALT) 24 U/L (12-78) Alkaline Phosphatase 50 U/L (46-116) Total Protein 7.7 G/DL (6.4-8.2) Albumin 3.6 G/DL (3.4-5.0) Globulin 4.1 g/dL Albumin/Globulin Ratio 0.9 (1.0-2.7) L Lipase 72 U/L (73-393) L EKG Diagnostic Results Rate: normal Rhythm: NSR ST Segments: no acute changes - Minimal voltage criteria for LVH Rhythm Strip Diag. Results EP Interpretation: yes Rhythm: NSR, no PVC's, no ectopy Last Vital Signs Date Time Temp Pulse Resp B/P (MAP) Pulse Ox O2 Delivery O2 Flow Rate FiO2 6/25/20 04:35 98.0 80 18 140/90 98 Room Air Status: improved Disposition: HOME, SELF-CARE Condition: Improved Scripts Clotrimazole (GYNE-LOTRIMIN*) 45 Gm Cream.appl 1 APPLIC VG QHS, #45 GM 0 Refills Prov: Stanford Rucker MD 02/23/20 Referrals: NON PHYSICIAN (PCP) Stanford Rucker MD Feb 23, 2020 01:51
[2020-02-23 02:12] LABS: APPEARANCE,URINE CLEAR; BILIRUBIN, URINE NEGATIVE (NEGATIVE); COLOR,URINE PALE YELLOW; GLUCOSE, URINE (UA) NEGATIVE (NEGATIVE); KETONES,URINE NEGATIVE (NEGATIVE); LEUKOCYTE ESTERASE ,URINE 2+ (NEGATIVE); NITRITE,URINE NEGATIVE (NEGATIVE); PH,URINE 6.5 (4.5-8.0); PROTEIN,URINE NEGATIVE (NEGATIVE); UROBILINOGEN,URINE NORMAL MG/DL (0.0-1.0)
[2020-02-23 02:14] LABS: BASOPHILS % (AUTO) 2.2 % (0.0-2.0); HEMATOCRIT 43.1 % (37.0-47.0); HEMOGLOBIN 13.9 G/DL (12.0-16.0); LYMPHOCYTES % (AUTO) 46.4 % (20.0-45.0); MEAN CORPUSCULAR VOLUME 88 FL (80-99); MONOCYTES % (AUTO) 7.3 % (1.0-10.0); NEUTROPHILS % (AUTO) 42.1 % (45.0-75.0); PLATELET COUNT 223 K/UL (150-450); RED BLOOD COUNT 4.87 M/UL (4.20-5.40); RED CELL DISTRIBUTION WIDTH 11.8 % (11.6-14.8); WHITE BLOOD COUNT 4.9 K/UL (4.8-10.8)
[2020-02-23 02:26] LABS: ANION GAP 10 mmol/L (5-15); BLOOD UREA NITROGEN 10 mg/dL (7-18); CALCIUM 9.3 MG/DL (8.5-10.1); CARBON DIOXIDE 27 MMOL/L (21-32); CHLORIDE 101 MMOL/L (98-107); CREATININE 0.8 MG/DL (0.55-1.30); POTASSIUM 3.3 MMOL/L (3.5-5.1); SODIUM 138 MMOL/L (136-145)
[2020-02-23 02:30] LABS: ALANINE AMINOTRANSFERASE 24 U/L (12-78); ALBUMIN 3.6 G/DL (3.4-5.0); ALBUMIN/GLOBULIN RATIO 0.9 (1.0-2.7); ALKALINE PHOSPHATASE 50 U/L (46-116); ASPARTATE AMINO TRANSFERASE 19 U/L (15-37); BILIRUBIN,TOTAL 0.9 MG/DL (0.2-1.0)
[2020-02-23] MEDS ORDERED: SODIUM CHLORIDE IV SCH (03:00)
[2020-02-23] MEDS ORDERED: POTASSIUM CHLORIDE IV SCH (03:00)
[2020-02-23] MEDS ORDERED: GYNE-LOTRIMIN45 GM VG (04:30)
[2020-02-23 04:35] VITALS: BP 140/90
== END 2020-02-23 04:35 | disposition home or self-care (01) ==
LOC: EMR 01:45
DX: E86.0 Dehydration (principal); E87.6 Hypokalemia; B37.49 Other urogenital candidiasis; I10 Essential (primary) hypertension; J45.909 Unspecified asthma, uncomplicated; Z90.710 Acquired absence of both cervix and uterus
CPT/HCPCS: 36415; 80053; 81003; 83690; 83735; 85025; 87086; 93005; 96361; 96365; J3480; J7030; Z7502; 99284

== ENCOUNTER 2020-02-26 12:55 | Emergency (ER) | payer MEDICAID ==
[~2020-02-26] VITALS: Ht 162.6 cm; Wt 99.8 kg
[~2020-02-26 12:55] MED LIST changes: +GYNE-LOTRIMIN45 GM VG
[2020-02-26 13:10] VITALS: BP 154/84
[2020-02-26 13:24] LABS: APPEARANCE,URINE CLEAR; BILIRUBIN, URINE NEGATIVE (NEGATIVE); COLOR,URINE PALE YELLOW; GLUCOSE, URINE (UA) NEGATIVE (NEGATIVE); KETONES,URINE NEGATIVE (NEGATIVE); LEUKOCYTE ESTERASE ,URINE NEGATIVE (NEGATIVE); NITRITE,URINE NEGATIVE (NEGATIVE); PH,URINE 7 (4.5-8.0); PROTEIN,URINE NEGATIVE (NEGATIVE); UROBILINOGEN,URINE NORMAL MG/DL (0.0-1.0)
[2020-02-26 14:19] LABS: BASOPHILS % (AUTO) 1.4 % (0.0-2.0); EOSINOPHILS % (AUTO) 1.1 % (0.0-3.0); HEMATOCRIT 44.4 % (37.0-47.0); HEMOGLOBIN 14.4 G/DL (12.0-16.0); MEAN CORPUSCULAR VOLUME 89 FL (80-99); MONOCYTES % (AUTO) 6.1 % (1.0-10.0); NEUTROPHILS % (AUTO) 64.5 % (45.0-75.0); PLATELET COUNT 239 K/UL (150-450); RED BLOOD COUNT 4.98 M/UL (4.20-5.40); RED CELL DISTRIBUTION WIDTH 11.8 % (11.6-14.8)
[2020-02-26 14:26] LABS: ANION GAP 11 mmol/L (5-15); BLOOD UREA NITROGEN 14 mg/dL (7-18); CALCIUM 9.5 MG/DL (8.5-10.1); CARBON DIOXIDE 24 MMOL/L (21-32); CHLORIDE 103 MMOL/L (98-107); CREATININE 0.8 MG/DL (0.55-1.30); POTASSIUM 4.1 MMOL/L (3.5-5.1); SODIUM 138 MMOL/L (136-145)
--- NOTE | 2020-02-26 14:29 | Emergency Room Report ---
History of Present Illness General Chief Complaint: Female Urogenital Problems Source: Patient Present Illness HPI 54-year-old female with history of hypokalemia currently taking potassium pills here complaining of 1 day of dysuria urinary frequency. Denies any hematuria, abdominal pain, flank pain, nausea vomiting fever and chills. Reports that this morning after her work she also felt lightheaded and is requesting IV fluids. Has not taken medication for symptom relief. Patient is afebrile, vital signs are within normal limits. Denies . Allergies: Coded Allergies: No Known Allergies (Unverified , 12/23/12) COVID-19 Screening Contact w/high risk pt: No Recent Travel to affected area: No Experienced COVID-19 symptoms?: No COVID-19 Testing performed PROCUREMENT ENGINEER: No Patient History Past Medical History: see triage record Past Surgical History: none Pertinent Family History: none Last Menstrual Period: na Now: No Immunizations: UTD Reviewed Nursing Documentation: PMH: Agreed; PSxH: Agreed Nursing Documentation-PMH Past Medical History: No History, Except For Hx Cardiac Problems: No - hysterectomy Hx Hypertension: Yes Hx Pacemaker: No Hx Asthma: Yes Hx COPD: No Hx Diabetes: No - borderline DM Hx Cancer: No Hx Gastrointestinal Problems: No Hx Dialysis: No Hx Neurological Problems: No Hx Cerebrovascular Accident: No Hx Seizures: No Review of Systems All Other Systems: negative except mentioned in HPI Physical Exam Vital Signs Date Time Temp Pulse Resp B/P (MAP) Pulse Ox O2 Delivery O2 Flow Rate FiO2 02/26/20 13:04 98.2 73 18 154/84 (107) 97 Room Air Sp02 EP Interpretation: reviewed, normal General Appearance: no apparent distress, alert, GCS 15, non-toxic Head: normocephalic, atraumatic Eyes: bilateral eye normal inspection, bilateral eye PERRL ENT: hearing grossly normal, normal pharynx, no angioedema, normal voice Neck: full range of motion, supple/symm/no masses Respiratory: chest non-tender, lungs clear, normal breath sounds, no rhonchi, no respiratory distress, no retraction, no wheezing, speaking full sentences Cardiovascular #1: regular rate, rhythm, no edema Gastrointestinal: normal bowel sounds, non tender, soft, non-distended, no guarding, no hernia, no pulsatile mass, no rebound Rectal: deferred Genitourinary: no CVA tenderness Musculoskeletal: back normal Neurologic: alert, motor strength/tone normal, oriented x3, sensory intact, responsive, speech normal Psychiatric: judgement/insight normal, memory normal, mood/affect normal, no suicidal/homicidal ideation Skin: no rash Lymphatic: no adenopathy Medical Decision Making PA Attestation All diagnoses and treatment plans were reviewed and discussed with my supervising physician Dr. Del Rio Diagnostic Impression: Primary Impression: UTI (urinary tract infection) ER Course 54-year-old female with history of hypokalemia currently taking potassium pills here complaining of 1 day of dysuria urinary frequency. Denies any hematuria, abdominal pain, flank pain, nausea vomiting fever and chills. Reports that this morning after her work she also felt lightheaded and is requesting IV fluids. Has not taken medication for symptom relief. Patient is afebrile, vital signs are within normal limits. Denies . Ddx considered but are not limited to: UTI, pyelonephritis, urinary incontinence , prolapsed bladder Vital signs: are WNL, pt. is afebrile H&PE are most consistent with: UTI ORDERS: UA, urine cx, CBC, CMP, Keflex, pyridium ED INTERVENTIONS: NS bolus DISCHARGE: At this time pt. is stable for d/c to home. Will provide printed patient care instructions, and any necessary prescriptions. Care plan and follow up instructions have been discussed with the patient prior to discharge. Take medication as directed, follow with your primary care provider, increase oral hydration, worsening symptoms return to the emergency room Last Vital Signs Date Time Temp Pulse Resp B/P (MAP) Pulse Ox O2 Delivery O2 Flow Rate FiO2 02/26/20 13:10 98.2 74 18 154/84 97 Room Air Disposition: HOME, SELF-CARE Condition: Stable Patient Instructions: Urinary Tract Infection Additional Instructions: Take medication as directed, follow with your primary care provider, increase oral hydration, worsening symptoms return to the emergency room Douglas Quiñones Feb 26, 2020 14:29
[2020-02-26] MEDS ORDERED: CEPHALEXIN500 MG ORAL (14:31)
[2020-02-26] MEDS ORDERED: PHENAZOPYRIDIN200 MG ORAL (14:31)
[2020-02-26 14:33] LABS: ALANINE AMINOTRANSFERASE 26 U/L (12-78); ALBUMIN 3.9 G/DL (3.4-5.0); ALBUMIN/GLOBULIN RATIO 0.8 (1.0-2.7); ALKALINE PHOSPHATASE 49 U/L (46-116); ASPARTATE AMINO TRANSFERASE 21 U/L (15-37); BILIRUBIN,TOTAL 0.7 MG/DL (0.2-1.0)
[2020-02-26] MEDS ORDERED: CLARITIN10 M2 ORAL (19:07)
[2020-02-26] MEDS ORDERED: PRILOSEC OTC20 MG ORAL (19:07)
== END 2020-02-26 14:43 | disposition home or self-care (01) ==
LOC: EMR 13:15
DX: N39.0 Urinary tract infection, site not specified (principal); R42 Dizziness and giddiness; Z90.710 Acquired absence of both cervix and uterus
CPT/HCPCS: 36415; 80053; 81003; 85025; 96360; J7030; Z7502; 99284

== ENCOUNTER 2020-02-26 18:38 | Emergency (ER) | payer MEDICAID ==
[~2020-02-26] VITALS: Ht 162.6 cm; Wt 99.8 kg
[2020-02-26 19:05] VITALS: BP 158/93
--- NOTE | 2020-02-26 19:05 | NUR ---
Nurse Note: Pt relates she came back because her s/s havent resolved and she feels differently. no n/v/abd/fever/dyspnea
[2020-02-26] MEDS ORDERED: CLARITIN10 M2 ORAL (19:07)
[2020-02-26] MEDS ORDERED: PRILOSEC OTC20 MG ORAL (19:07)
[2020-02-26 19:15] VITALS: BP 158/93
--- NOTE | 2020-02-26 19:15 | NUR ---
ED Nurse Note: Pt cleared by health care Provider for discharge. DC instructions/prescription was given and explained to pt and verbalized understanding of teachings. Instructed pt to follow up with primary care physican within one week. All medical deviecs such as ID band removed. Pt is AAO x4, ambulatory and left with all personal belongings.
--- NOTE | 2020-02-26 19:53 | Emergency Room Report ---
History of Present Illness General Chief Complaint: Female Urogenital Problems Source: Patient Present Illness HPI Patient is a 54-year-old female presents after recent visit to the emergency department. Patient states that she continues to have some burning sensation to the epigastric area. Had prior history of recent colonoscopy. She had intermittent episodes of cramping to her extremities which he is had multiple times in the past. Patient states that she had recent ER visit. Patient had recently taken 1 dose of Keflex. Denies any vomiting. Had previous episodes of similar numbness and burning sensation to her extremities. 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 Patient History Past Medical History: see triage record Last Menstrual Period: na Now: No Reviewed Nursing Documentation: PMH: Agreed; PSxH: Agreed Nursing Documentation-PMH Past Medical History: No History, Except For Hx Cardiac Problems: No - hysterectomy Hx Hypertension: Yes Hx Pacemaker: No Hx Asthma: Yes Hx COPD: No Hx Diabetes: No - borderline DM Hx Cancer: No Hx Gastrointestinal Problems: No Hx Dialysis: No Hx Neurological Problems: No Hx Cerebrovascular Accident: No Hx Seizures: No Review of Systems All Other Systems: negative except mentioned in HPI Physical Exam Vital Signs Date Time Temp Pulse Resp B/P (MAP) Pulse Ox O2 Delivery O2 Flow Rate FiO2 02/26/20 18:51 99.0 70 16 158/93 (114) 96 Room Air General Appearance: well appearing, no apparent distress, alert, GCS 15, obese Head: normocephalic, atraumatic ENT: hearing grossly normal, normal voice Neck: full range of motion, supple Respiratory: no respiratory distress, speaking full sentences Cardiovascular #1: normal inspection, regular rate, rhythm Musculoskeletal: normal inspection, normal range of motion, no calf tenderness Neurologic: alert, motor strength/tone normal, hourly manager III-XII nml as tested, oriented x3, normal gait Psychiatric: mood/affect normal Skin: no rash Medical Decision Making Diagnostic Impression: Primary Impression: Muscle cramps Additional Impression: Gastritis ER Course Patient presents for muscle cramps and stomach discomfort. Differential diagnosis include was not limited to gastritis, urinary tract infection, allergic reaction among others. Patient has a benign exam and does not appear to require any imaging or laboratory testing at this time. Patient has had multiple ER visits with similar symptoms in the past and has had negative CT imaging. Patient was advised to follow-up with neurology for further work-up of her paresthesias. Patient does not appear to have any evidence of neuro deficit. Pulses appear to be equal in all extremities. Patient had previously been prescribed medications for urinary tract infection and patient does not appear to be septic. She was given medications for symptomatic treatment of gastritis. She was advised to return if worse. The patient is advised to follow up with primary care doctor in 1-2 days. Patient is advised to return if any worsening condition or if any changes in status that are concerning. This report is dictated with [employer] first press operator software which may occasionally lead to discrepancies related to use of this software. Last Vital Signs Date Time Temp Pulse Resp B/P (MAP) Pulse Ox O2 Delivery O2 Flow Rate FiO2 02/26/20 19:15 99.0 86 16 158/93 96 Room Air Status: improved Disposition: HOME, SELF-CARE Condition: Stable Scripts Omeprazole Magnesium (PRILOSEC OTC) 20 Mg Tablet.dr 20 MG ORAL DAILY, #30 TAB Prov: Coleman Cristobal MD 02/26/20 Loratadine (CLARITIN) 10 Mg Capsule 10 MG ORAL DAILY, #20 CAP Prov: Coleman Cristobal MD 02/26/20 Referrals: NON PHYSICIAN (PCP) Patient Instructions: Paresthesia, Urinary Tract Infection Additional Instructions: Follow up with neurology for further workup of your symptoms. Return if worsening pain, dizziness, persistnet vomiting or other concerns. Coleman Cristobal MD Feb 26, 2020 19:53
== END 2020-02-26 19:25 | disposition home or self-care (01) ==
LOC: EMR 19:24
DX: K29.70 Gastritis, unspecified, without bleeding (principal); R25.2 Cramp and spasm; Z90.710 Acquired absence of both cervix and uterus; I10 Essential (primary) hypertension; E66.9 Obesity, unspecified
CPT/HCPCS: 99282

== ENCOUNTER 2020-02-28 17:12 | Emergency (ER) | payer MEDICAID ==
[~2020-02-28] VITALS: Ht 162.6 cm; Wt 104.3 kg
[~2020-02-28 17:12] MED LIST changes: +CLARITIN10 M2 ORAL; +PRILOSEC OTC20 MG ORAL
--- NOTE | 2020-02-28 17:26 | NUR ---
ED Nurse Note: Pt ambulated to ed c/o dehydration. pt was seen at [facility] for same reason a few days ago. pt has no signs of distress, vss. denies pain.
[2020-02-28 17:27] VITALS: BP 160/100
--- NOTE | 2020-02-28 17:45 | Emergency Room Report ---
History of Present Illness General Chief Complaint: General Complaint Source: Patient Present Illness HPI This is a fourth visit to the emergency department for this patient. She was seen after taking a colon cleanser prior to colonoscopy on February 22. At that time she was dehydrated and potassium was low. Potassium was replaced in volume also. She was able to undergo the colonoscopy. She is continued to feel ill. She was evaluated on the . It was felt that she had a UTI however the culture grew mixed evan. She does not feel that she has dysuria or a urinary tract infection at this time. She was seen later that day for cramping in her muscles. She was given replacement fluids. Electrolytes revealed a normal potassium at that time. She is taking Keflex at this time. Today she was seen by her own doctor who referred her back to the emergency department. The patient's been complaining about sunken eyes and poor skin turgor. Her doctor said that she is dehydrated at this time. She recommended taking Pedialyte but the patient's had difficulty taking this orally. She feels it has not helped. She had some crampy feelings both in her stomach and also in her left foot. At that time the pain was rated at 5/10. The pain is better at this time. She reports a tingling feeling in her back. The patient denies fevers or chills. No sore throat, chest pain, palpitations, nausea, vomiting, diarrhea, dysuria, shortness of breath, joint pain, rashes, depression, anxiety, visual changes, dizziness, headache. Allergies: Coded Allergies: No Known Allergies (Unverified , 12/23/12) COVID-19 Screening Contact w/high risk pt: No Recent Travel to affected area: No Experienced COVID-19 symptoms?: No COVID-19 Testing performed QUALITY CONTROL ENGINEER: No Patient History Past Medical History: see triage record Social History: Denies: smoking Social History Narrative Patient drove herself here Now: No Reviewed Nursing Documentation: PMH: Agreed; PSxH: Agreed Nursing Documentation-PMH Hx Cardiac Problems: No - hysterectomy Hx Hypertension: Yes Hx Pacemaker: No Hx Asthma: Yes Hx COPD: No Hx Diabetes: No - borderline DM Hx Cancer: No Hx Gastrointestinal Problems: No Hx Dialysis: No Hx Neurological Problems: No Hx Cerebrovascular Accident: No Hx Seizures: No Review of Systems All Other Systems: negative except mentioned in HPI Physical Exam Vital Signs Date Time Temp Pulse Resp B/P (MAP) Pulse Ox O2 Delivery O2 Flow Rate FiO2 02/28/20 17:20 98.2 71 20 160/100 (120) 96 Room Air Sp02 EP Interpretation: reviewed, normal General Appearance: well appearing, no apparent distress, GCS 15, non-toxic Head: normocephalic Eyes: bilateral eye PERRL, bilateral eye EOMI, bilateral eye other - She says her eyes are sunken ENT: moist mucus membranes Neck: supple Respiratory: lungs clear, normal breath sounds Cardiovascular #1: regular rate, rhythm Cardiovascular #2: 2+ radial (R) Gastrointestinal: normal inspection, normal bowel sounds, non tender, no mass, non-distended, overweight Genitourinary: no CVA tenderness Musculoskeletal: back normal, normal range of motion, gait/station normal Neurologic: alert, motor strength/tone normal, oriented x3, sensory intact, grossly normal Psychiatric: depressed affect Skin: no rash, warm/dry, other - She reports that there are more wrinkles Medical Decision Making Diagnostic Impression: Primary Impression: Dehydration Additional Impression: Muscle cramps ER Course Patient presents with feeling weak and having muscle cramps after a colonic preparation for colonoscopy. Differential includes dehydration, rhabdomyolysis , lecture light imbalance, hypokalemia, hypomagnesemia amongst others. Evaluation with labs. Treatment with lactated Ringer's and other crystalloid volume replacement. She is also given a dose of Toradol for the discomfort of muscle cramping. Labs returned essentially normal. Patient refused second IV. She stated that she is feeling better but she still felt some tingling in her upper back. Advised that she needed continued hydration. She then agreed. After 500 mils infusion she states she wants to go home. She feels that her eyes are back to normal and that her skin is also back to normal. Discussed treatment plan with patient. Patient stable for outpatient observation and treatment. Laboratory Tests Test 02/28/20 17:30 White Blood Count 6.0 K/UL (4.8-10.8) Red Blood Count 4.89 M/UL (4.20-5.40) Hemoglobin 13.9 G/DL (12.0-16.0) Hematocrit 42.2 % (37.0-47.0) Mean Corpuscular Volume 86 FL (80-99) Mean Corpuscular Hemoglobin 28.4 PG (27.0-31.0) Mean Corpuscular Hemoglobin Concent 32.9 G/DL (32.0-36.0) Red Cell Distribution Width 12.3 % (11.6-14.8) Platelet Count 245 K/UL (150-450) Mean Platelet Volume 8.5 FL (6.5-10.1) Neutrophils (%) (Auto) 55.1 % (45.0-75.0) Lymphocytes (%) (Auto) 36.8 % (20.0-45.0) Monocytes (%) (Auto) 5.7 % (1.0-10.0) Eosinophils (%) (Auto) 0.7 % (0.0-3.0) Basophils (%) (Auto) 1.7 % (0.0-2.0) Urine Color Yellow Urine Appearance Clear Urine pH 6.5 (4.5-8.0) Urine Specific [place] 1.005 (1.005-1.035) Urine Protein Negative (NEGATIVE) Urine Glucose (UA) Negative (NEGATIVE) Urine Ketones Negative (NEGATIVE) Urine Blood Negative (NEGATIVE) Urine Nitrite Negative (NEGATIVE) Urine Bilirubin Negative (NEGATIVE) Urine Urobilinogen Normal MG/DL (0.0-1.0) Urine Leukocyte Esterase Negative (NEGATIVE) Sodium Level 141 MMOL/L (136-145) Potassium Level 3.6 MMOL/L (3.5-5.1) Chloride Level 105 MMOL/L (98-107) Carbon Dioxide Level 26 MMOL/L (21-32) Anion Gap 10 mmol/L (5-15) Blood Urea Nitrogen 11 mg/dL (7-18) Creatinine 0.8 MG/DL (0.55-1.30) Estimated Glomerular Filtration Rate > 60 mL/min (>60) Glucose Level 96 MG/DL (74-106) Calcium Level 9.1 MG/DL (8.5-10.1) Phosphorus Level 3.1 MG/DL (2.5-4.9) Magnesium Level 2.0 MG/DL (1.8-2.4) Total Bilirubin 0.7 MG/DL (0.2-1.0) Aspartate Amino Transferase (AST) 16 U/L (15-37) Alanine Aminotransferase (ALT) 45 U/L (12-78) Alkaline Phosphatase 50 U/L (46-116) Total Creatine Kinase 164 U/L (26-308) Total Protein 8.1 G/DL (6.4-8.2) Albumin 4.1 G/DL (3.4-5.0) Globulin 4.0 g/dL Albumin/Globulin Ratio 1.0 (1.0-2.7) Lipase 67 U/L (73-393) L Last Vital Signs Date Time Temp Pulse Resp B/P (MAP) Pulse Ox O2 Delivery O2 Flow Rate FiO2 02/28/20 21:34 98.2 71 20 147/91 96 Room Air Status: improved Disposition: HOME, SELF-CARE Condition: Improved Scripts Ibuprofen* (MOTRIN*) 600 Mg Tablet 600 MG ORAL Q6H PRN for FOR PAIN, #20 TAB 0 Refills Prov: Stanford Rucker MD 02/28/20 Methocarbamol* (ROBAXIN-500*) 500 Mg Tablet 500 MG ORAL TID PRN for For Pain, #12 TAB 0 Refills Prov: Stanford Rucker MD 02/28/20 Referrals: [facility],REFERRING (PCP) Stanford Rucker MD Feb 28, 2020 17:45
[2020-02-28] MEDS: LR 1000ml 1,000 ML IV SCH ×2 (17:46→18:45)
[2020-02-28 17:50] LABS: APPEARANCE,URINE CLEAR; BASOPHILS % (AUTO) 1.7 % (0.0-2.0); BILIRUBIN, URINE NEGATIVE (NEGATIVE); COLOR,URINE YELLOW; EOSINOPHILS % (AUTO) 0.7 % (0.0-3.0); GLUCOSE, URINE (UA) NEGATIVE (NEGATIVE); HEMATOCRIT 42.2 % (37.0-47.0); HEMOGLOBIN 13.9 G/DL (12.0-16.0); KETONES,URINE NEGATIVE (NEGATIVE); LEUKOCYTE ESTERASE ,URINE NEGATIVE (NEGATIVE); LYMPHOCYTES % (AUTO) 36.8 % (20.0-45.0); MEAN CORPUSCULAR VOLUME 86 FL (80-99); MONOCYTES % (AUTO) 5.7 % (1.0-10.0); NEUTROPHILS % (AUTO) 55.1 % (45.0-75.0); NITRITE,URINE NEGATIVE (NEGATIVE); PH,URINE 6.5 (4.5-8.0); PLATELET COUNT 245 K/UL (150-450); PROTEIN,URINE NEGATIVE (NEGATIVE); RED BLOOD COUNT 4.89 M/UL (4.20-5.40); RED CELL DISTRIBUTION WIDTH 12.3 % (11.6-14.8); UROBILINOGEN,URINE NORMAL MG/DL (0.0-1.0)
[2020-02-28 17:59] LABS: ANION GAP 10 mmol/L (5-15); BLOOD UREA NITROGEN 11 mg/dL (7-18); CALCIUM 9.1 MG/DL (8.5-10.1); CARBON DIOXIDE 26 MMOL/L (21-32); CHLORIDE 105 MMOL/L (98-107); CREATININE 0.8 MG/DL (0.55-1.30); POTASSIUM 3.6 MMOL/L (3.5-5.1); SODIUM 141 MMOL/L (136-145)
[2020-02-28 18:03] LABS: ALANINE AMINOTRANSFERASE 45 U/L (12-78); ALBUMIN 4.1 G/DL (3.4-5.0); ALKALINE PHOSPHATASE 50 U/L (46-116); ASPARTATE AMINO TRANSFERASE 16 U/L (15-37); BILIRUBIN,TOTAL 0.7 MG/DL (0.2-1.0); CREATINE KINASE 164 U/L (26-308); PHOSPHORUS 3.1 MG/DL (2.5-4.9)
--- NOTE | 2020-02-28 19:16 | NUR ---
HAND-OFF: Report given to Mike Johnson.
[2020-02-28] MEDS ORDERED: Ketorolac 30mg Inj IV ONE (19:45)
[2020-02-28] MEDS ORDERED: ROBAXIN-500MG ORAL (21:26)
[2020-02-28] MEDS ORDERED: IBUPROFEN600 M1 ORAL (21:26)
[2020-02-28 21:34] VITALS: BP 147/91
== END 2020-02-28 21:35 | disposition home or self-care (01) ==
LOC: EMR 17:34
DX: E86.0 Dehydration (principal); R25.2 Cramp and spasm; Z90.710 Acquired absence of both cervix and uterus; I10 Essential (primary) hypertension; E66.3 Overweight; Z68.39 Body mass index [BMI] 39.0-39.9, adult; M54.9 Dorsalgia, unspecified
CPT/HCPCS: 36415; 80053; 81003; 82550; 83690; 83735; 84100; 85025; 96360; 96361; 96374; J1885; J7030; Z7502; 99284

== ENCOUNTER 2020-03-10 19:07 | Emergency (ER) | payer MEDICAID ==
[~2020-03-10] VITALS: Ht 162.6 cm; Wt 104.3 kg
[~2020-03-10 19:07] MED LIST changes: +IBUPROFEN600 M1 ORAL; +ROBAXIN-500MG ORAL
[2020-03-10 19:20] VITALS: BP 152/92
[2020-03-10] MEDS ORDERED: LOSARTAN POTASS25 MG ORAL (19:20)
--- NOTE | 2020-03-10 19:25 | NUR ---
ED Nurse Note: Patient walked into ED c/o dry lips and reports of tingling sensation in her tounge onset for the last 2 days now. patient denies any pain however reports of being light headed, denies any syncopal episode. patient was recently seen here 10 days prior to visit for the same reason. reports of drinking plenty of fluids. denies any other symptoms. IV started on right AC 20 gauge. blood and urine sent down to lab. will continue to monitor
--- NOTE | 2020-03-10 19:43 | Emergency Room Report ---
History of Present Illness General Chief Complaint: General Complaint Source: Patient (Douglas Quiñones) Present Illness HPI 54-year-old female with history of hypertension currently controlled here complaining of 2 days of feeling dehydrated, cramps and legs, denying any nausea vomiting, diarrhea. Reports that she has been here multiple times for the same reason is always diagnosed with dehydration. Reports that she used to take lisinopril in addition to Norvasc for blood pressure however last time was told at [facility] that she needs to change lisinopril as she was getting little cough and swelling around the eyes and cramps in legs. Patient has not been taking losartan as of last week. Reports that the swelling around the eyes and cramps in the legs have not subsided. Denies any loss of taste or smell, fever and chills, urinary symptoms at this time. Reports that she has always had problems with constipation and is taking a stool softener. Denies any blood in the stool. Denies . Reports that she does not want any muscle relaxant. Denies tobacco smoke, marijuana use, alcohol intake. Denies chest pain, headache and dizziness (Douglas Quiñones) Allergies: Coded Allergies: No Known Allergies (Unverified , 12/23/12) COVID-19 Screening Contact w/high risk pt: No Recent Travel to affected area: No Experienced COVID-19 symptoms?: No COVID-19 Testing performed SAWDUST DRIER: No (Douglas Quiñones) Patient History Past Medical History: see triage record Past Surgical History: none Pertinent Family History: none Last Menstrual Period: n/a Now: No Immunizations: UTD Reviewed Nursing Documentation: PMH: Agreed; PSxH: Agreed (Douglas Quiñones) Nursing Documentation-PMH Past Medical History: No History, Except For Hx Cardiac Problems: No - hysterectomy Hx Hypertension: Yes Hx Pacemaker: No Hx Asthma: Yes Hx COPD: No Hx Diabetes: No - borderline DM Hx Cancer: No Hx Gastrointestinal Problems: No Hx Dialysis: No Hx Neurological Problems: No Hx Cerebrovascular Accident: No Hx Seizures: No (Douglas Quiñones) Review of Systems All Other Systems: negative except mentioned in HPI (Douglas Quiñones) Physical Exam Vital Signs Date Time Temp Pulse Resp B/P (MAP) Pulse Ox O2 Delivery O2 Flow Rate FiO2 03/10/20 19:17 98.6 67 18 160/96 (117) 98 Room Air Sp02 EP Interpretation: reviewed, normal General Appearance: no apparent distress, alert, GCS 15, non-toxic Head: normocephalic, atraumatic Eyes: bilateral eye normal inspection, bilateral eye PERRL ENT: hearing grossly normal, normal pharynx, no angioedema, normal voice Neck: full range of motion, supple, supple/symm/no masses Respiratory: chest non-tender, lungs clear, normal breath sounds, no rhonchi, no respiratory distress, no retraction, speaking full sentences Cardiovascular #1: regular rate, rhythm, no edema, no murmur Cardiovascular #2: 2+ carotid (R), 2+ carotid (L), 2+ radial (R), 2+ radial (L) , 2+ femoral (R), 2+ femoral (L), 2+ dorsalis pedis (R), 2+ dorsalis pedis (L) Gastrointestinal: normal bowel sounds, non tender, soft, non-distended, no guarding, no rebound Rectal: deferred Genitourinary: normal inspection, no CVA tenderness Musculoskeletal: back normal, no calf tenderness, pelvis stable Neurologic: alert, motor strength/tone normal, oriented x3, sensory intact, responsive, speech normal Psychiatric: judgement/insight normal, memory normal, mood/affect normal, no suicidal/homicidal ideation Skin: no rash Lymphatic: no adenopathy (Douglas Quiñones) Medical Decision Making PA Attestation All diagnoses and treatment plans were reviewed and discussed with my supervising physician Dr. Rucker (Douglas Quiñones) Diagnostic Impression: Primary Impression: Dehydration Additional Impression: Muscle cramp ER Course 54-year-old female with history of hypertension currently controlled here complaining of 2 days of feeling dehydrated, cramps and legs, denying any nausea vomiting, diarrhea. Reports that she has been here multiple times for the same reason is always diagnosed with dehydration. Reports that she used to take lisinopril in addition to Norvasc for blood pressure however last time was told at [facility] that she needs to change lisinopril as she was getting little cough and swelling around the eyes and cramps in legs. Patient has not been taking losartan as of last week. Reports that the swelling around the eyes and cramps in the legs have not subsided. Denies any loss of taste or smell, fever and chills, urinary symptoms at this time. Reports that she has always had problems with constipation and is taking a stool softener. Denies any blood in the stool. Denies . Reports that she does not want any muscle relaxant. Denies tobacco smoke, marijuana use, alcohol intake. Denies chest pain, headache and dizziness Ddx considered but are not limited to: Dehydration, hypokalemia, muscle cramps, FL, Vital signs: are WNL, pt. is afebrile H&PE are most consistent with dehydration, side effect of medication ORDERS: CBC, CMP, UA, tox screen, troponin, Motrin ED INTERVENTIONS: NS bolus DISCHARGE: At this time pt. is stable for d/c to home. Will provide printed patient care instructions, and any necessary prescriptions. Care plan and follow up instructions have been discussed with the patient prior to discharge. Patient to increase oral hydration, follow primary care provider for referral to geodesy teacher for better management of high blood pressure as losartan can be causing these new symptoms as well. If worsening symptoms return to emergency room (Douglas Quiñones) Last Vital Signs Date Time Temp Pulse Resp B/P (MAP) Pulse Ox O2 Delivery O2 Flow Rate FiO2 03/10/20 19:17 98.6 67 18 160/96 (117) 98 Room Air (Douglas Quiñones) Disposition: HOME, SELF-CARE Condition: Stable Scripts Ibuprofen* (MOTRIN*) 400 Mg Tablet 400 MG ORAL Q6H, #30 TAB 0 Refills Prov: Douglas Quiñones 03/10/20 Patient Instructions: Dehydration, Adult, [id number], Muscle Cramps and Spasms, [id number] Additional Instructions: Patient to increase oral hydration, follow primary care provider for referral to geodesy teacher for better management of high blood pressure as losartan can be causing these new symptoms as well. If worsening symptoms return to emergency room Douglas Quiñones Mar 10, 2020 19:43 Stanford Rucker MD Mar 11, 2020 02:30
[2020-03-10 19:52] LABS: APPEARANCE,URINE CLEAR; BILIRUBIN, URINE NEGATIVE (NEGATIVE); COLOR,URINE PALE YELLOW; GLUCOSE, URINE (UA) NEGATIVE (NEGATIVE); KETONES,URINE NEGATIVE (NEGATIVE); LEUKOCYTE ESTERASE ,URINE NEGATIVE (NEGATIVE); NITRITE,URINE NEGATIVE (NEGATIVE); PH,URINE 7 (4.5-8.0); PROTEIN,URINE NEGATIVE (NEGATIVE); UROBILINOGEN,URINE NORMAL MG/DL (0.0-1.0)
[2020-03-10 20:02] LABS: ANION GAP 10 mmol/L (5-15); BLOOD UREA NITROGEN 12 mg/dL (7-18); CALCIUM 8.9 MG/DL (8.5-10.1); CARBON DIOXIDE 29 MMOL/L (21-32); CHLORIDE 101 MMOL/L (98-107); POTASSIUM 3.7 MMOL/L (3.5-5.1); SODIUM 140 MMOL/L (136-145)
[2020-03-10 20:07] LABS: ALANINE AMINOTRANSFERASE 29 U/L (12-78); ALKALINE PHOSPHATASE 51 U/L (46-116); ASPARTATE AMINO TRANSFERASE 17 U/L (15-37); BASOPHILS % (AUTO) 1.9 % (0.0-2.0); BILIRUBIN,TOTAL 0.5 MG/DL (0.2-1.0); EOSINOPHILS % (AUTO) 1.5 % (0.0-3.0); HEMATOCRIT 41.4 % (37.0-47.0); HEMOGLOBIN 13.2 G/DL (12.0-16.0); LYMPHOCYTES % (AUTO) 46.2 % (20.0-45.0); MEAN CORPUSCULAR VOLUME 88 FL (80-99); NEUTROPHILS % (AUTO) 43.5 % (45.0-75.0); PLATELET COUNT 239 K/UL (150-450); RED BLOOD COUNT 4.68 M/UL (4.20-5.40); RED CELL DISTRIBUTION WIDTH 12.5 % (11.6-14.8); WHITE BLOOD COUNT 5.7 K/UL (4.8-10.8)
[2020-03-10] MEDS ORDERED: IBUPROFEN400 MG ORAL (20:14)
[2020-03-10 20:20] VITALS: BP 130/88
== END 2020-03-10 20:40 | disposition home or self-care (01) ==
LOC: EMR 20:31
DX: E86.0 Dehydration (principal); R25.2 Cramp and spasm; Z90.710 Acquired absence of both cervix and uterus; I10 Essential (primary) hypertension
CPT/HCPCS: 36415; 80053; 80307; 81003; 84484; 85025; 96360; Z7502; 99284